=== PATIENT | female | born 1990 | race Caucasian/White ===

== ENCOUNTER 2016-03-29 15:00 | Emergency (ER) | payer OTHER, MEDICAID ==
[~2016-03-29 15:00] MED LIST: /DIVA50TA PO; /HALO5TAB OR; /LAMO10TA OR; /QUET10TA PO; /QUET25TA PO; ABIL15TA OR; ABIL5TAB PO; ALLE25CA OR; ANBE10LI TOP; ATIV1TAB2 PO; BACI500O8 TOP; BENA25CA2 PO; CIPR500T4 PO; CITA10TA2 PO; CLARITIN; DEPA500T2 PO; DIFL150T OR; DOCU100C PO; EFFE150C; EFFE150C OR; EFFE150C PO; FERR325T3 PO; FIOR1CAP PO; FLUP1TAB PO; GEOD40CA PO; IBUP200T45 PO; KLON0.5T; KLON0.5T OR; LAMI25TA OR; LAMI25TA PO; LATU40TA PO; LATU80TA PO; MV-OCAP PO; NASA0.057; NYST10PW TOP; OCEA0.654; PERCOCET PO; PRENATAL VITAMIN PO; PROZ40CA; PROZ40CA PO; RISP2TAB12 PO; SERO200T; SERO200T OR; SERO400T OR; STUATAB PO; THERGRAN; TRAZ150T OR; TUMS500C PO; TYLE325T5 PO; VIT D PO; VITAMIN D50000 UNT; ZOLO100T OR; ZOLO25TA PO; ZOLO50TA PO; ZYPR15TA OR; ZYPR20TA OR; [UNRECOGNIZED DRUG - CODE] PO; monistat TOP
--- NOTE | 2016-03-29 16:32 | REP ---
Chest x-ray: Two views. History: Cough. . Comparison study: Comparison chest x-ray July 24, 2015. . Findings: The lungs are well inflated and free of infiltrate. The pleural angles are sharp. The heart size is normal. Pulmonary vasculature is not increased. No significant bony abnormality is seen. Impression: Negative chest x-ray. Signed by Israel Corrales MD 03/29/2016 04:24 P
--- NOTE | 2016-03-29 16:51 | EDDOCDS ---
Nurse's Notes [facility] Name: Morena Taylor Age: 25 yrs Sex: Female : 1990 Arrival Date: 03/29/2016 Time: 15:00 Bed TR7 Private MD: Marcella Fabian Diagnosis: Cough-chronic Presentation: 03/29 15:21 Presenting complaint: Patient states: "for a little while Esperanza had nasal congestion, hs1 coughing up yellow stuff" ENT told patient that her CT scan was clear but that patient might need a chest CT or Xray. Patient went to [facility] for studies and she was told probably not needed. So patient comes here for evaluation. Adult Sepsis Screening: The patient does not have new or worsening altered mentation. Patient has a respiratory rate of greater than or equal to 22 (1 point). Systolic blood pressure is greater than 100. Patient has a qSOFA score of 0- Negative Sepsis Screen. Suicide/Homicide risk assessment- the patient denies having any suicidal and/or homicidal ideations and does not present with any other emotional, behavioral or mental health complaints. Status: The patient is a dependent. Transition of care: patient was not received from another setting of care. 15:21 Acuity: CRISTIAN Level 4 hs1 15:21 Method Of Arrival: Walkin/Carried/Asstd hs1 Triage Assessment: 15:25 General: Appears in no apparent distress, Behavior is appropriate for age, cooperative. hs1 Pain: Location: chest Pain currently is 3 out of 10 on a pain scale. HIV screening NA for this visit Offered previously. Respiratory: Onset: The symptoms/episode began/occurred at an unknown time. 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 hemorridal suppositories - PMHx: Bipolar disorder; GERD; Rach's Disease; head Trauma; Irritable bowel syndrome; mammary dysplasia; OCD; Ovarian cyst; PTSD; Scoliosis; Seasonal Allergies; Spinal Cyst; tremors; cervical adenopathy; - PSHx: dental surgeries; Tubal ligation; ; - Social history: Smoking status: Patient states former smoker of tobacco. No barriers to communication noted, The patient speaks fluent [place], Speaks appropriately for age. - Family history: Not pertinent. - : The pt / caregiver states he / she is not on anticoagulants. Home medication list is obtained from the patient. - Exposure Risk Screening:: None identified. Screenin:47 Screening information is obtained from the patient. Fall risk: No risks identified. js13 Assistance ADL's: requires no assistance with activities of daily living. Abuse/DV Screen: The patient / caregiver reports he/she is: not in a situation that causes fear, pain or injury. Nutritional screening: No deficits noted. Advance Directives: Currently, there is no health care proxy. home support is adequate. Assessment: 16:47 General: Appears in no apparent distress, comfortable, Behavior is appropriate for age, js13 cooperative. Pain: Denies pain. Neurological: Level of Consciousness is awake, alert. Cardiovascular: Chest pain is denied. Respiratory: Airway is patent Respiratory effort is even, unlabored, Respiratory pattern is regular, Breath sounds are clear. Derm: Skin is pink, warm & dry. Vital Signs: 15:02 BP 131 / 69; Pulse 73; Resp 18 S; Temp 98.1; Pulse Ox 97% on R/A; Weight 66.22 kg (M); dd6 Height 5 ft. 4 in. (162.56 cm) (R); 16:47 js13 15:02 Body Mass Index 25.06 (66.22 kg, 162.56 cm) dd6 16:47 Patient refused discharge VS js13 Vitals: 15:02 Log In Time: March 29, 2016 at 15:00. dd6 ED Course: 15:01 Patient visited by Shaan Martinez PCA. dd6 15:01 Marcella Fabian is Private Physician. dd6 15:01 Patient moved to Waiting dd6 15:03 Patient moved to Pre RCE dd6 15:23 Triage Initiated hs1 16:35 Patient moved to Triage 2 js13 16:35 Chest, 2 View (pa\\E\\lat) Returned. EDMS 16:36 [facility]bar[facility] cc10 16:36 Estella Silverman MD is Attending Physician. cc10 16:36 Patient visited by Earl Ibarra PA-C. cc10 16:36 Patient visited by Earl Ibarra PA-C. cc10 16:44 Marcella Fabian is Referral Physician. cc10 16:47 The patient / caregiver is instructed regarding the plan of care and ED course. js13 16:47 No IV's were initiated during this patient's visit. No procedures done that require js13 assistance. 16:49 Patient moved to [facility] ar3 Order Results: Radiology Order: Chest, 2 View (pa\\E\\lat) Test: Chest, 2 View (pa\\E\\lat) REASON FOR EXAMINATION: Cough; Chest x-ray: Two views.; ; History: Cough. .; ; Comparison study: Comparison chest x-ray July 24, 2015. .; ; Findings: The lungs are well inflated and free of infiltrate. The pleural; angles are sharp. The heart size is normal. Pulmonary vasculature is not; increased. No significant bony abnormality is seen.; ; Impression:; ; Negative chest x-ray.; ; ; Signed by; Israel Corrales MD 03/29/2016 04:24 P; Outcome: 16:44 Discharge ordered by Provider. cc10 16:47 Discharge Assessment: Patient awake, alert and oriented x 3. No cognitive and/or js13 functional deficits noted. Patient verbalized understanding of disposition instructions. patient administered narcotics - no. The following High Risk Discharge criteria are identified: None. Discharged to home ambulatory. Condition: stable. Discharge instructions given to patient, Instructed on discharge instructions, follow up and referral plans. medication usage, Demonstrated understanding of instructions, medications, Pt was receptive of discharge instructions/ teaching. Prescriptions given X 1. No special radiology studies were completed. Property :Personal belongings accompany Pt. 16:49 Patient left the ED. js13 Signatures: Dispatcher [employer] EDMS Shaan Martinez, SLEEPING CAR CONDUCTOR SLEEPING CAR CONDUCTOR dd6 Morena Erazo, SLEEPING CAR CONDUCTOR SLEEPING CAR CONDUCTOR ar3 Daniella Russell RN RN hs1 Devi Pappas RN RN js13 Earl Ibarra PA-C PA-C [facility] MTDD
--- NOTE | 2016-03-29 16:51 | EDDOCDS ---
Physician Documentation [facility] Name: Morena Taylor Age: 25 yrs Sex: Female : 1990 Arrival Date: 03/29/2016 Time: 15:00 Bed TR7 Private MD: Marcella Fabian Disposition: 03/29/16 16:44 Discharged to Home/Self Care. Impression: Cough - chronic. - Condition is Stable. - Discharge Instructions: Cough, Adult. - Prescriptions for Guaifenesin- DM 10-100 mg/5 mL Oral Liquid - take 5 milliliter by ORAL route every 4 hours As needed; 100 milliliter. - Medication Reconciliation, Local Pharmacy Hours form. - Follow up: Emergency Department; When: As needed. Follow up: Marcella Fabian; When: Call to arrange an appointment; Reason: Wound/Symptom Recheck, Further diagnostic work-up, Recheck today's complaints, Continuance of care. - Problem is chronic. - Symptoms are unchanged. Historical: - Allergies: Amoxicillin (Rash); Azithromycin; Bactrim (Rash); Clindamycin (Rash); Colace (Rash, Wheezing); PCN; Tegretol (eyes itch); - Home Meds: 1. hemorridal suppositories - PMHx: Bipolar disorder; GERD; Rach's Disease; head Trauma; Irritable bowel syndrome; mammary dysplasia; OCD; Ovarian cyst; PTSD; Scoliosis; Seasonal Allergies; Spinal Cyst; tremors; cervical adenopathy; - PSHx: dental surgeries; Tubal ligation; ; - Social history: Smoking status: Patient states former smoker of tobacco. No barriers to communication noted, The patient speaks fluent Moh[place], Speaks appropriately for age. - Family history: Not pertinent. - : The pt / caregiver states he / she is not on anticoagulants. Home medication list is obtained from the patient. - Exposure Risk Screening:: None identified. 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 4 in. (162.56 cm) (R); 16:47 js13 15:02 Body Mass Index 25.06 (66.22 kg, 162.56 cm) dd6 16:47 Patient refused discharge VS js13 MDM: 15:44 Chest, 2 View (pa\E\lat) Ordered. EDMS Signatures: Dispatcher [employer] EDMS Daniella Russell RN RN hs1 Devi Pappas RN RN js13 Earl Ibarra, ОЛЬГАC PAHarriettC cc10 MTDD
--- NOTE | 2016-03-31 17:51 | EDDOCDS ---
Physician Documentation [facility] Name: Morena Taylor Age: 25 yrs Sex: Female : 1990 Arrival Date: 03/29/2016 Time: 15:00 Bed TR7 Private MD: Marcella Fabian Disposition: 03/29/16 16:44 Discharged to Home/Self Care. Impression: Cough - chronic. - Condition is Stable. - Discharge Instructions: Cough, Adult. - Prescriptions for Guaifenesin- DM 10-100 mg/5 mL Oral Liquid - take 5 milliliter by ORAL route every 4 hours As needed; 100 milliliter. - Medication Reconciliation, Local Pharmacy Hours form. - Follow up: Emergency Department; When: As needed. Follow up: Marcella Fabian; When: Call to arrange an appointment; Reason: Wound/Symptom Recheck, Further diagnostic work-up, Recheck today's complaints, Continuance of care. - Problem is chronic. - Symptoms are unchanged. Historical: - Allergies: Amoxicillin (Rash); Azithromycin; Bactrim (Rash); Clindamycin (Rash); Colace (Rash, Wheezing); PCN; Tegretol (eyes itch); - Home Meds: 1. hemorridal suppositories - PMHx: Bipolar disorder; GERD; Rach's Disease; head Trauma; Irritable bowel syndrome; mammary dysplasia; OCD; Ovarian cyst; PTSD; Scoliosis; Seasonal Allergies; Spinal Cyst; tremors; cervical adenopathy; - PSHx: dental surgeries; Tubal ligation; ; - Social history: Smoking status: Patient states former smoker of tobacco. No barriers to communication noted, The patient speaks fluent Amharic, Speaks appropriately for age. - Family history: Not pertinent. - : The pt / caregiver states he / she is not on anticoagulants. Home medication list is obtained from the patient. - Exposure Risk Screening:: None identified. 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 4 in. (162.56 cm) (R); 16:47 13 15:02 Body Mass Index 25.06 (66.22 kg, 162.56 cm) dd6 16:47 Patient refused discharge VS js13 MDM: 15:44 Chest, 2 View (pa\E\lat) Ordered. EDMS 03/30 10:01 T-Sheet-- Draft Copy was scanned into [employer] and attached to record. gb Signatures: Dispatcher [employer] EDAK Leena Moreno, Reg Reg gb Daniella Russell RN RN hs1 Devi Pappas RN RN js13 Earl Ibarra, PA-C PA-C cc10 The chart was reviewed and I authenticate all verbal orders and agree with the evaluation and treatment provided.Attachments: 10:01 T-Sheet-- Draft Copy gb Chart Complete MTDD
--- NOTE | 2016-03-31 17:51 | EDDOCDS ---
Physician Documentation [facility] Name: Morena Taylor Age: 25 yrs Sex: Female : 1990 Arrival Date: 03/29/2016 Time: 15:00 Bed TR7 Private MD: Marcella Fabian Disposition: 03/29/16 16:44 Discharged to Home/Self Care. Impression: Cough - chronic. - Condition is Stable. - Discharge Instructions: Cough, Adult. - Prescriptions for Guaifenesin- DM 10-100 mg/5 mL Oral Liquid - take 5 milliliter by ORAL route every 4 hours As needed; 100 milliliter. - Medication Reconciliation, Local Pharmacy Hours form. - Follow up: Emergency Department; When: As needed. Follow up: Marcella Fabian; When: Call to arrange an appointment; Reason: Wound/Symptom Recheck, Further diagnostic work-up, Recheck today's complaints, Continuance of care. - Problem is chronic. - Symptoms are unchanged. Historical: - Allergies: Amoxicillin (Rash); Azithromycin; Bactrim (Rash); Clindamycin (Rash); Colace (Rash, Wheezing); PCN; Tegretol (eyes itch); - Home Meds: 1. hemorridal suppositories - PMHx: Bipolar disorder; GERD; Rach's Disease; head Trauma; Irritable bowel syndrome; mammary dysplasia; OCD; Ovarian cyst; PTSD; Scoliosis; Seasonal Allergies; Spinal Cyst; tremors; cervical adenopathy; - PSHx: dental surgeries; Tubal ligation; ; - Social history: Smoking status: Patient states former smoker of tobacco. No barriers to communication noted, The patient speaks fluent [place], Speaks appropriately for age. - Family history: Not pertinent. - : The pt / caregiver states he / she is not on anticoagulants. Home medication list is obtained from the patient. - Exposure Risk Screening:: None identified. 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 4 in. (162.56 cm) (R); 16:47 13 15:02 Body Mass Index 25.06 (66.22 kg, 162.56 cm) dd6 16:47 Patient refused discharge VS js13 MDM: 15:44 Chest, 2 View (pa\E\lat) Ordered. EDMS 03/30 10:01 T-Sheet-- Draft Copy was scanned into [employer] and attached to record. gb Signatures: Dispatcher [employer] EDIA Leena Moreno, Reg Reg gb Daniella Russell RN RN hs1 Devi Pappas RN RN js13 Earl Ibarra, PA-C PA-C cc10 The chart was reviewed and I authenticate all verbal orders and agree with the evaluation and treatment provided.Attachments: 10:01 T-Sheet-- Draft Copy gb Chart Complete MTDD
--- NOTE | 2016-03-31 17:51 | EDDOCDS ---
Nurse's Notes [facility] Name: Morena Taylor Age: 25 yrs Sex: Female : 1990 Arrival Date: 03/29/2016 Time: 15:00 Bed TR7 Private MD: Marcella Fabian Diagnosis: Cough-chronic Presentation: 03/29 15:21 Presenting complaint: Patient states: "for a little while Esperanza had nasal congestion, hs1 coughing up yellow stuff" ENT told patient that her CT scan was clear but that patient might need a chest CT or Xray. Patient went to [facility] for studies and she was told probably not needed. So patient comes here for evaluation. Adult Sepsis Screening: The patient does not have new or worsening altered mentation. Patient has a respiratory rate of greater than or equal to 22 (1 point). Systolic blood pressure is greater than 100. Patient has a qSOFA score of 0- Negative Sepsis Screen. Suicide/Homicide risk assessment- the patient denies having any suicidal and/or homicidal ideations and does not present with any other emotional, behavioral or mental health complaints. Status: The patient is a dependent. Transition of care: patient was not received from another setting of care. 15:21 Acuity: CRISTIAN Level 4 hs1 15:21 Method Of Arrival: Walkin/Carried/Asstd hs1 Triage Assessment: 15:25 General: Appears in no apparent distress, Behavior is appropriate for age, cooperative. hs1 Pain: Location: chest Pain currently is 3 out of 10 on a pain scale. HIV screening NA for this visit Offered previously. Respiratory: Onset: The symptoms/episode began/occurred at an unknown time. 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 hemorridal suppositories - PMHx: Bipolar disorder; GERD; Rach's Disease; head Trauma; Irritable bowel syndrome; mammary dysplasia; OCD; Ovarian cyst; PTSD; Scoliosis; Seasonal Allergies; Spinal Cyst; tremors; cervical adenopathy; - PSHx: dental surgeries; Tubal ligation; ; - Social history: Smoking status: Patient states former smoker of tobacco. No barriers to communication noted, The patient speaks fluent Nauruan, Speaks appropriately for age. - Family history: Not pertinent. - : The pt / caregiver states he / she is not on anticoagulants. Home medication list is obtained from the patient. - Exposure Risk Screening:: None identified. Screenin:47 Screening information is obtained from the patient. Fall risk: No risks identified. js13 Assistance ADL's: requires no assistance with activities of daily living. Abuse/DV Screen: The patient / caregiver reports he/she is: not in a situation that causes fear, pain or injury. Nutritional screening: No deficits noted. Advance Directives: Currently, there is no health care proxy. home support is adequate. Assessment: 16:47 General: Appears in no apparent distress, comfortable, Behavior is appropriate for age, js13 cooperative. Pain: Denies pain. Neurological: Level of Consciousness is awake, alert. Cardiovascular: Chest pain is denied. Respiratory: Airway is patent Respiratory effort is even, unlabored, Respiratory pattern is regular, Breath sounds are clear. Derm: Skin is pink, warm & dry. Vital Signs: 15:02 BP 131 / 69; Pulse 73; Resp 18 S; Temp 98.1; Pulse Ox 97% on R/A; Weight 66.22 kg (M); dd6 Height 5 ft. 4 in. (162.56 cm) (R); 16:47 js13 15:02 Body Mass Index 25.06 (66.22 kg, 162.56 cm) dd6 16:47 Patient refused discharge VS js13 Vitals: 15:02 Log In Time: March 29, 2016 at 15:00. dd6 ED Course: 15:01 Patient visited by Shaan Martinez PCA. dd6 15:01 Marcella Fabian is Private Physician. dd6 15:01 Patient moved to Waiting dd6 15:03 Patient moved to Pre RCE dd6 15:23 Triage Initiated hs1 16:35 Patient moved to Triage 2 js13 16:35 Chest, 2 View (pa\\E\\lat) Returned. EDMS 16:36 Earl Ibarra PA-C [facility] cc10 16:36 Estella Silverman MD is Attending Physician. cc10 16:36 Patient visited by Earl Ibarra PA-C. cc10 16:36 Patient visited by Earl Ibarra PA-C. cc10 16:44 Marcella Fabian is Referral Physician. cc10 16:47 The patient / caregiver is instructed regarding the plan of care and ED course. js13 16:47 No IV's were initiated during this patient's visit. No procedures done that require js13 assistance. 16:49 Patient moved to [place] [id number] 03/30 10:01 T-Sheet-- Draft Copy was scanned into [employer] and attached to record. gb Order Results: Radiology Order: Chest, 2 View (pa\\E\\lat) Test: Chest, 2 View (pa\\E\\lat) REASON FOR EXAMINATION: Cough; Chest x-ray: Two views.; ; History: Cough. .; ; Comparison study: Comparison chest x-ray July 24, 2015. .; ; Findings: The lungs are well inflated and free of infiltrate. The pleural; angles are sharp. The heart size is normal. Pulmonary vasculature is not; increased. No significant bony abnormality is seen.; ; Impression:; ; Negative chest x-ray.; ; ; Signed by; Israel Corrales MD 03/29/2016 04:24 P; Outcome: 03/29 16:44 Discharge ordered by Provider. cc10 16:47 Discharge Assessment: Patient awake, alert and oriented x 3. No cognitive and/or js13 functional deficits noted. Patient verbalized understanding of disposition instructions. patient administered narcotics - no. The following High Risk Discharge criteria are identified: None. Discharged to home ambulatory. Condition: stable. Discharge instructions given to patient, Instructed on discharge instructions, follow up and referral plans. medication usage, Demonstrated understanding of instructions, medications, Pt was receptive of discharge instructions/ teaching. Prescriptions given X 1. No special radiology studies were completed. Property :Personal belongings accompany Pt. 16:49 Patient left the ED. js13 Signatures: Dispatcher [employer] EDMS Leena Moreno, Reg Reg gb Shaan Martinez, BILINGUAL OPERATOR BILINGUAL OPERATOR dd6 Morena Erazo, BILINGUAL OPERATOR BILINGUAL OPERATOR ar3 Daniella Russell, HUMAIRA RN hs1 Devi Pappas RN RN js13 Earl Ibarra PA-C PA-C cc10 Chart Complete MTDD
== END 2016-03-29 16:49 | disposition home or self-care (01) ==
LOC: M ED 15:00
DX: R05 Cough (principal); K21.9 Gastro-esophageal reflux disease without esophagitis; F31.9 Bipolar disorder, unspecified; K58.9 Irritable bowel syndrome, unspecified; F42.9 Obsessive-compulsive disorder, unspecified; J30.9 Allergic rhinitis, unspecified; M41.9 Scoliosis, unspecified; R25.1 Tremor, unspecified; N60.99 Unspecified benign mammary dysplasia of unspecified breast; M71.38 Other bursal cyst, other site; Z87.820 Personal history of traumatic brain injury; Z87.891 Personal history of nicotine dependence; Z88.0 Allergy status to penicillin; Z88.1 Allergy status to other antibiotic agents; Z88.8 Allergy status to other drugs, medicaments and biological substances

== ENCOUNTER → 2016-04-02 | Outpatient (CLI) | payer OTHER, MEDICAID ==
--- NOTE | 2016-04-02 15:25 | REP ---
THYROID SONOGRAPHY: HISTORY: Elevated TSH level. Comparison thyroid sonography is from September 24, 2013. FINDINGS: Thyroid isthmus is 0.3 cm in thickness and appears normal. Homogeneous thyroid lobes are seen bilaterally. Right lobe dimensions are 4.3 x 2.1 x 1.5 cm. Left lobe dimensions are 4.2 x 1.5 x 1.2 cm. No thyroid nodule or mass lesion is seen. No evidence of extrathyroidal mass or adenopathy. IMPRESSION: Negative thyroid sonography. Signed by Israel Corrales MD 04/02/2016 03:51 P
== END ==
LOC: M RAD 14:28
PROVIDERS: ATTEND Nurse Practitioner Family
DX: R94.6 Abnormal results of thyroid function studies (principal)

== ENCOUNTER → 2016-04-09 | Outpatient (CLI) | payer OTHER, MEDICAID ==
[2016-04-09 16:24] LABS: ANION GAP 6 MEQ/L (8-16); BLOOD UREA NITROGEN 9 MG/DL (7-18); CALCIUM LEVEL 8.9 MG/DL (8.5-10.1); CARBON DIOXIDE LEVEL 30 MEQ/L (21-32); CHLORIDE LEVEL 104 MEQ/L (98-107); CREATININE FOR GFR 0.69 MG/DL (0.55-1.02); FREE T4 0.99 NG/DL (0.76-1.46); GLOMERULAR FILTRATION RATE > 60.0 (>60); GLUCOSE, FASTING 91 MG/DL (70-105); POTASSIUM SERUM 3.6 MEQ/L (3.5-5.1); SODIUM LEVEL 140 MEQ/L (136-145)
== END ==
LOC: M LAB 14:55
PROVIDERS: ATTEND Nurse Practitioner Family
DX: R56.9 Unspecified convulsions (principal); R51 Headache

== ENCOUNTER → 2016-04-09 | Outpatient (CLI) | payer OTHER, MEDICAID ==
[2016-04-09 15:46] LABS: BASO % 0.6 % (0.0-1.0); EOS # 0.2 K/mm3 (0.0-0.50); EOS % 4.4 % (0.0-3.0); LARGE UNSTAINED CELL # 0.1 K/mm3 (0.0-0.4); LARGE UNSTAINED CELL % 2.2 % (0.0-4.0); LYMPH # 1.8 K/mm3 (1.5-6.5); LYMPH % 40.2 % (24.0-44.0); MEAN CORPUSCULAR HEMOGLOBIN 29.6 pg (27.0-33.0); MEAN CORPUSCULAR VOLUME 89.8 fl (80.0-96.0); MONO # 0.2 K/mm3 (0.0-0.8); MONO % 3.5 % (0.0-5.0); NEUTROPHILS # 2.2 K/mm3 (1.8-7.7); NEUTROPHILS % 49.2 % (36.0-66.0); PLATELET COUNT, AUTOMATED 208 k/mm3 (150-450); RED CELL DISTRIBUTION WIDTH 12.3 % (11.5-14.5); WHITE BLOOD COUNT 4.4 K/mm3 (4.0-10.0)
[2016-04-09 16:16] LABS: ERYTHROCYTE SEDIMENTATION RATE 5 mm/hr (0-20)
[2016-04-09 16:25] LABS: ALBUMIN 3.9 GM/DL (3.2-5.2); ALBUMIN/GLOBULIN RATIO 1.34 (1.00-1.93); ALKALINE PHOSPHATASE 47 U/L (45-117); ALT/SGPT 18 U/L (12-78); ANION GAP 8 MEQ/L (8-16); AST/SGOT 12 U/L (15-37); BILIRUBIN,TOTAL 0.3 MG/DL (0.2-1.0); BLOOD UREA NITROGEN 9 MG/DL (7-18); CALCIUM LEVEL 8.6 MG/DL (8.5-10.1); CARBON DIOXIDE LEVEL 29 MEQ/L (21-32); CHLORIDE LEVEL 104 MEQ/L (98-107); CREATININE FOR GFR 0.65 MG/DL (0.55-1.02); GLOMERULAR FILTRATION RATE > 60.0 (>60); GLUCOSE, FASTING 92 MG/DL (70-105); POTASSIUM SERUM 3.7 MEQ/L (3.5-5.1); SODIUM LEVEL 141 MEQ/L (136-145); TOTAL PROTEIN 6.8 GM/DL (6.4-8.2)
== END | disposition home or self-care (01) ==
LOC: M LAB 14:59
PROVIDERS: ATTEND Psychiatry & Neurology Neurology
DX: R51 Headache (principal); R56.9 Unspecified convulsions

== ENCOUNTER → 2016-06-02 | Outpatient (CLI) | payer OTHER, MEDICAID ==
[2016-06-04 11:02] LABS: HIV SCREEN CENTAUR NEGATIVE (NEGATIVE)
== END ==
LOC: M LAB 15:21
PROVIDERS: ATTEND Nurse Practitioner Family
DX: Z11.3 Encounter for screening for infections with a predominantly sexual mode of transmission (principal)

== ENCOUNTER → 2016-06-14 | Outpatient (CLI) | payer OTHER, MEDICAID ==
[2016-06-14 17:25] LABS: ALBUMIN 4.1 GM/DL (3.2-5.2); ALBUMIN/GLOBULIN RATIO 1.32 (1.00-1.93); BILIRUBIN,DIRECT 0.2 MG/DL (0.0-0.2); BILIRUBIN,TOTAL 0.5 MG/DL (0.2-1.0); TOTAL PROTEIN 7.2 GM/DL (6.4-8.2)
== END ==
LOC: M LAB 15:38
DX: Z79.899 Other long term (current) drug therapy (principal)

== ENCOUNTER 2016-06-18 14:51 | Emergency (ER) | payer OTHER, MEDICAID ==
[~2016-06-18] VITALS: Ht 162.6 cm; Wt 70.3 kg
[2016-06-18] MEDS ORDERED: BUSP15TA47 (15:08)
[2016-06-18] MEDS ORDERED: FLEEENE4 PR (16:27)
--- NOTE | 2016-06-18 16:27 | REP ---
KUB: Single view. History: Constipation. Comparison study September 17, 2015. Findings: There is mild gaseous distension of the colon proximal to the distal descending segment. There is a small quantity of stool in the rectum. No radiographic evidence of constipation. There is soft tissue density filling the pelvis however consistent with urine distended bladder or other pelvic structure. Consider pelvic sonography. Impression: Mild gaseous distension of the colon proximal to the descending segment. A small quantity of stool is seen in the rectum. Soft tissue density fills the pelvis, question urinary bladder versus MANAGER AUTOMOTIVE abnormality. Consider sonography. Signed by Israel Corrales MD 06/18/2016 06:01 P
[2016-06-18 16:29] VITALS: BP 122/76
--- NOTE | 2016-06-18 17:16 | REP ---
PELVIC AND ENDOVAGINAL PROBE ULTRASOUND: 06/18/2016: Clinical history: Possible pelvic mass. The patient states no bowel movement for about 1 week. Findings: Both transabdominal and endovaginal probes were utilized. Bladder is only partially filled at 7.5 x 2.8 x 3.6 cm. Uterus is anteverted and measures 9 x 4 x 5 cm. There is a trace amount of fluid in the endometrial cavity. The normal three line thickness is about 13 mm on EV probe. No mas or uterine contour abnormality. Uterus appears fairly homogeneous in the myometrium. There is trace endometrial fluid and endometrial canal. The right ovary is 2.8 x 3.2 x 2.6 cm. The left is 3.1 x 1.95 x 2.30.3 cm. Both ovaries show Doppler tracings with resistive index 0.45 right and 0.49 left. No torsion. There are some small follicles in the left ovary and the right side without mass or adjacent fluid. Many fluid-filled bowel loops are seen adjacent to the uterus. Impression: 1. Uterus anteverted without mass or contour abnormality with endometrial stripe thickness 13 mm with trace endometrial fluid. 2. No pelvic free fluid or adnexal mass. There are small follicles in the ovaries and both ovaries are symmetric and with normal blood flow, no torsion. Signed by Ranulfo Allison MD 06/19/2016 08:57 A
== END 2016-06-18 16:34 | disposition home or self-care (01) ==
LOC: M ED 15:44
DX: R10.2 Pelvic and perineal pain (principal); G89.29 Other chronic pain; K59.00 Constipation, unspecified; F99 Mental disorder, not otherwise specified; Z79.899 Other long term (current) drug therapy; Z88.8 Allergy status to other drugs, medicaments and biological substances; Z88.0 Allergy status to penicillin; Z88.1 Allergy status to other antibiotic agents; Z88.2 Allergy status to sulfonamides; Z91.040 Latex allergy status

== ENCOUNTER → 2016-08-16 | Outpatient (CLI) | payer OTHER, MEDICAID ==
[~2016-08-16] MED LIST changes: +BUSP15TA47; +FLEEENE4 PR
[2016-08-16 16:45] LABS: ALBUMIN 3.5 GM/DL (3.2-5.2); ALBUMIN/GLOBULIN RATIO 1.13 (1.00-1.93); ALKALINE PHOSPHATASE 54 U/L (45-117); ALT/SGPT 17 U/L (12-78); ANION GAP 5 MEQ/L (8-16); AST/SGOT 9 U/L (15-37); BILIRUBIN,TOTAL 0.3 MG/DL (0.2-1.0); BLOOD UREA NITROGEN 7 MG/DL (7-18); CALCIUM LEVEL 8.8 MG/DL (8.5-10.1); CARBON DIOXIDE LEVEL 32 MEQ/L (21-32); CHLORIDE LEVEL 104 MEQ/L (98-107); CREATININE FOR GFR 0.63 MG/DL (0.55-1.02); GLOMERULAR FILTRATION RATE > 60.0 (>60); GLUCOSE, FASTING 74 MG/DL (70-105); POTASSIUM SERUM 4.3 MEQ/L (3.5-5.1); SODIUM LEVEL 141 MEQ/L (136-145); TOTAL PROTEIN 6.6 GM/DL (6.4-8.2)
== END ==
LOC: M LAB 14:57
PROVIDERS: ATTEND Nurse Practitioner Family
DX: K59.00 Constipation, unspecified (principal)

== ENCOUNTER → 2016-09-24 | Outpatient (CLI) | payer OTHER, MEDICAID ==
[~2016-09-24] MED LIST changes: -DOCU100C PO; +DOCU100C16 PO; +NASA0.0517; -NASA0.057
[2016-09-24 15:25] LABS: MEAN CORPUSCULAR HGB CONC 35.3 g/dl (32.0-36.5); MEAN CORPUSCULAR VOLUME 90.7 fl (80.0-96.0); RED CELL DISTRIBUTION WIDTH 12.5 % (11.5-14.5); WHITE BLOOD COUNT 6.4 K/mm3 (4.0-10.0)
== END ==
LOC: M LAB 14:46
PROVIDERS: ATTEND Nurse Practitioner Family
DX: N92.0 Excessive and frequent menstruation with regular cycle (principal)

== ENCOUNTER → 2016-11-02 | Outpatient (CLI) | payer OTHER, MEDICAID ==
[~2016-11-02] MED LIST changes: +GASTROGRAFIN SOLUTION 30ML (Q9963) As Ordered ONE; +ISOVUE-370 76% 100ML VIAL (Q9967) As Ordered ONE
--- NOTE | 2016-11-03 07:20 | REP ---
Clinical: Generalized abdominal pain. Mass. Technique: Axial contrast enhanced images from the lung bases to the pubic symphysis using oral and 100 ml Isovue 370 intravenous contrast material with precontrast images of the abdomen as well as coronal and sagittal re-formations. Comparison: 12/28/2014. Findings: The lung bases are clear. Visualized heart and pericardium are normal. The liver, spleen, pancreas, gallbladder, bilateral adrenal glands and kidneys are normal. The enteric system is without obstruction or acute inflammatory process. Normal terminal ileum and appendix are identified in the right lower quadrant. Pelvis demonstrates normal bladder and age-appropriate uterus/adnexa; common appearance to the left ovary likely physiologic and related to menstrual cycle. No ascites or significant pelvic fluid. No obvious adenopathy. No free air. Abdominal aorta and vasculature appears normal. Surrounding musculoskeletal structures are intact. Impression: Normal contrast enhanced CT of the abdomen and pelvis. No acute abdominopelvic pathology appreciated. Signed by Danyel Kent MD 11/03/2016 07:12 A
== END ==
LOC: M RAD 12:42
PROVIDERS: ATTEND Internal Medicine
DX: R10.84 Generalized abdominal pain (principal)
CPT/HCPCS: 74178; Q9963; Q9967

== ENCOUNTER 2017-05-24 14:50 | Emergency (ER) | payer OTHER, MEDICAID ==
[2017-05-24] MEDS: MAGNESIUM CITRATE 300 ML BTL PO (18:47)
== END 2017-05-24 18:49 | disposition home or self-care (01) ==
LOC: M ED 14:50
DX: K59.00 Constipation, unspecified (principal); I10 Essential (primary) hypertension; F25.9 Schizoaffective disorder, unspecified; F42.9 Obsessive-compulsive disorder, unspecified; F31.9 Bipolar disorder, unspecified; Z87.42 Personal history of other diseases of the female genital tract; Z88.8 Allergy status to other drugs, medicaments and biological substances; Z88.0 Allergy status to penicillin; Z88.2 Allergy status to sulfonamides; Z88.6 Allergy status to analgesic agent; Z88.1 Allergy status to other antibiotic agents; Z91.040 Latex allergy status; Z79.899 Other long term (current) drug therapy
CPT/HCPCS: 74021

== ENCOUNTER → 2017-11-25 | Outpatient (REF) | payer OTHER, MEDICAID ==
[2017-11-25 17:24] LABS: APPEARANCE, URINE CLEAR (CLEAR); BACTERIA, URINE AUTO NEGATIVE (NEGATIVE); BILIRUBIN, URINE AUTO NEGATIVE (NEGATIVE); BLOOD, URINE BLOOD NEGATIVE (NEGATIVE); COLOR, URINE STRAW (YELLOW); GLUCOSE, URINE (UA) AUTO NEGATIVE (NEGATIVE); KETONE, URINE AUTO NEGATIVE (NEGATIVE); LEUKOCYTE ESTERASE, URINE AUTO NEGATIVE (NEGATIVE); NITRITE, URINE AUTO NEGATIVE (NEGATIVE); PROTEIN, URINE AUTO NEGATIVE (NEGATIVE); RBC, URINE AUTO 0 /HPF (0-3); SPECIFIC GRAVITY URINE AUTO 1.003 (1.002-1.035); SQUAMOUS EPITHELIAL CELL UR AU 0 /HPF (0-6); UROBILINOGEN, URINE AUTO 0.2 mg/dL (0.0-2.0); WBC, URINE AUTO 0 /HPF (0-3)
[2017-11-25 20:27] LABS: CHLAMYDIA DNA AMPLIFICATION NEGATIVE (NEGATIVE); GC DNA AMPLIFICATION NEGATIVE (NEGATIVE)
[2017-11-28 12:43] LABS: HEPATITIS B SURFACE ANTIGEN NEGATIVE (NEGATIVE); HIV 1&2 SCREEN CENTAUR NEGATIVE (NEGATIVE)
[2017-11-28 12:43] LABS: HEPATITIS C VIRUS ABY INDEX 0.2 INDEX (<0.8)
== END ==
LOC: M LAB REF 17:12
DX: Z11.3 Encounter for screening for infections with a predominantly sexual mode of transmission (principal)

== ENCOUNTER → 2018-06-09 | Outpatient (REF) | payer MEDICAID, OTHER ==
[~2018-06-09] MED LIST changes: -/DIVA50TA PO; -/HALO5TAB OR; -/LAMO10TA OR; -/QUET10TA PO; -/QUET25TA PO; +AZEL1SPR3; +COLA100C5 PO; +DEPA1TAB3 PO; -GASTROGRAFIN SOLUTION 30ML (Q9963) As Ordered ONE; +HALO1TAB21 OR; -ISOVUE-370 76% 100ML VIAL (Q9967) As Ordered ONE; +LAMI1TAB7 OR; +LITH300C PO; +NYST-15 TOP; -NYST10PW TOP; +SERO1TAB PO; +SERO1TAB3 PO
[2018-06-09 19:01] LABS: BASO % 0.7 % (0.0-1.0); EOS # 0.2 10^3/uL (0.0-0.50); EOS % 3.8 % (0.0-3.0); HEMATOCRIT 38.2 % (36.0-47.0); HEMOGLOBIN 12.7 g/dl (12.0-15.5); MEAN CORPUSCULAR HEMOGLOBIN 29.4 pg (27.0-33.0); MEAN CORPUSCULAR HGB CONC 33.2 g/dl (32.0-36.5); MEAN CORPUSCULAR VOLUME 88.4 fl (80.0-96.0); MONO # 0.3 10^3/uL (0.0-0.8); MONO % 5.2 % (0.0-5.0); NEUTROPHILS # 3.3 10^3/uL (1.8-7.7); PLATELET COUNT, AUTOMATED 266 10^3/uL (150-450); RED BLOOD COUNT 4.32 10^6/uL (4.00-5.40); WHITE BLOOD COUNT 5.8 10^3/uL (4.0-10.0)
[2018-06-09 19:15] LABS: ALBUMIN 4.2 GM/DL (3.2-5.2); ALT/SGPT 18 U/L (12-78); BILIRUBIN,TOTAL 0.5 MG/DL (0.2-1.0); BLOOD UREA NITROGEN 8 MG/DL (7-18); C REACTIVE PROTEIN QUANTITATIV < 0.30 MG/DL (0.00-0.30); CALCIUM LEVEL 9.2 MG/DL (8.5-10.1); CARBON DIOXIDE LEVEL 29 MEQ/L (21-32); CHLORIDE LEVEL 107 MEQ/L (98-107); CREATININE FOR GFR 0.74 MG/DL (0.55-1.30); GLOMERULAR FILTRATION RATE > 60.0 (>60); GLUCOSE, FASTING 79 MG/DL (70-100); POTASSIUM SERUM 4.1 MEQ/L (3.5-5.1); RHEUMATOID FACTOR QUANT < 10.0 IU/ML (<15.0); SODIUM LEVEL 142 MEQ/L (136-145); TOTAL PROTEIN 7.1 GM/DL (6.4-8.2)
[2018-06-09 19:36] LABS: ERYTHROCYTE SEDIMENTATION RATE 5 mm/hr (0-20)
[2018-06-12 14:52] LABS: ANTINUCLEAR ANTIBODIES DIRECT Negative (Negative)
== END ==
LOC: M LAB REF 17:33
PROVIDERS: ATTEND Family Medicine Addiction Medicine
DX: R53.83 Other fatigue (principal); M25.639 Stiffness of unspecified wrist, not elsewhere classified; R52 Pain, unspecified

== ENCOUNTER 2018-10-19 15:21 | Emergency (ER) | payer MEDICAID, OTHER ==
[~2018-10-19] VITALS: Ht 162.6 cm; Wt 74.5 kg
[2018-10-19] MEDS ORDERED: LEXA1TAB (15:28)
[2018-10-19] MEDS ORDERED: INVE1.5T (15:28)
--- NOTE | 2018-10-19 16:35 | REP ---
REASON: Nausea and clinical constipation. Supine and upright views of the abdomen were obtained and show no abnormalities. The intestinal gas pattern is nonspecific. This dual pattern appears appropriate. The organ silhouettes as far as delineated are within normal limits. There is no abnormalities seen involving the imaged osseous structures. IMPRESSION: Unremarkable exam. Electronically Signed by Jan Peters DO 10/19/2018 05:59 P
[2018-10-19] MEDS ORDERED: DICYCLOMINE 10 MG CAP PO ONE (17:15)
[2018-10-19] MEDS ORDERED: ONDANSETRON 4MG/2ML VIAL (J2405) IV ONE (17:15)
[2018-10-19] MEDS ORDERED: NS 1,000 ML IV ONE (17:15)
[2018-10-19 17:34] LABS: BASO # 0.1 10^3/uL (0.0-0.2); BASO % 0.6 % (0.0-1.0); EOS # 0.3 10^3/uL (0.0-0.50); EOS % 3.7 % (0.0-3.0); HEMATOCRIT 37.8 % (36.0-47.0); HEMOGLOBIN 12.6 g/dl (12.0-15.5); LYMPH # 2.3 10^3/uL (1.5-6.5); LYMPH % 29.4 % (24.0-44.0); MEAN CORPUSCULAR HEMOGLOBIN 28.7 pg (27.0-33.0); MEAN CORPUSCULAR HGB CONC 33.3 g/dl (32.0-36.5); MEAN CORPUSCULAR VOLUME 86.1 fl (80.0-96.0); MONO # 0.5 10^3/uL (0.0-0.8); MONO % 6.4 % (0.0-5.0); NEUTROPHILS # 4.7 10^3/uL (1.8-7.7); NEUTROPHILS % 59.8 % (36.0-66.0); PLATELET COUNT, AUTOMATED 240 10^3/uL (150-450); RED BLOOD COUNT 4.39 10^6/uL (4.00-5.40); WHITE BLOOD COUNT 7.9 10^3/uL (4.0-10.0)
[2018-10-19 18:00] LABS: ALBUMIN 3.9 GM/DL (3.2-5.2); ALT/SGPT 19 U/L (12-78); BILIRUBIN,TOTAL 0.3 MG/DL (0.2-1.0); BLOOD UREA NITROGEN 8 MG/DL (7-18); CARBON DIOXIDE LEVEL 30 MEQ/L (21-32); CHLORIDE LEVEL 106 MEQ/L (98-107); CREATININE FOR GFR 0.77 MG/DL (0.55-1.30); GLOMERULAR FILTRATION RATE > 60.0 (>60); GLUCOSE, FASTING 77 MG/DL (70-100); LIPASE 89 U/L (73-393); POTASSIUM SERUM 3.8 MEQ/L (3.5-5.1); SODIUM LEVEL 141 MEQ/L (136-145)
[2018-10-19] MEDS ORDERED: ZOFR4TAB16 PO (18:42)
[2018-10-19 18:54] VITALS: BP 113/65
== END 2018-10-19 19:02 | disposition home or self-care (01) ==
LOC: M ED 15:21
DX: R10.31 Right lower quadrant pain (principal); R10.32 Left lower quadrant pain; R10.84 Generalized abdominal pain; I10 Essential (primary) hypertension; E28.2 Polycystic ovarian syndrome; K21.9 Gastro-esophageal reflux disease without esophagitis; R56.9 Unspecified convulsions; Z79.899 Other long term (current) drug therapy; Z88.0 Allergy status to penicillin; Z88.2 Allergy status to sulfonamides; Z88.6 Allergy status to analgesic agent; Z88.8 Allergy status to other drugs, medicaments and biological substances; Z91.040 Latex allergy status
CPT/HCPCS: 74019; 80053; 81001; 83690; 85025; 96374; 99284; J2405

== ENCOUNTER → 2018-11-19 | Outpatient (REF) | payer OTHER ==
[~2018-11-19] MED LIST changes: +INVE1.5T; +LEXA1TAB; +ZOFR4TAB16 PO
[2018-11-19 21:37] LABS: APPEARANCE, URINE CLOUDY (CLEAR); BACTERIA, URINE AUTO 1+ (NEGATIVE); BILIRUBIN, URINE AUTO NEGATIVE (NEGATIVE); BLOOD, URINE BLOOD NEGATIVE (NEGATIVE); COLOR, URINE YELLOW (YELLOW); GLUCOSE, URINE (UA) AUTO NEGATIVE (NEGATIVE); KETONE, URINE AUTO NEGATIVE (NEGATIVE); LEUKOCYTE ESTERASE, URINE AUTO 3+ (NEGATIVE); MUCUS, URINE SMALL (NEGATIVE); NITRITE, URINE AUTO NEGATIVE (NEGATIVE); PROTEIN, URINE AUTO NEGATIVE (NEGATIVE); RBC, URINE AUTO 3 /HPF (0-3); SPECIFIC GRAVITY URINE AUTO 1.015 (1.002-1.035); SQUAMOUS EPITHELIAL CELL UR AU 12 /HPF (0-6); UROBILINOGEN, URINE AUTO 0.2 mg/dL (0.0-2.0); WBC, URINE AUTO 43 /HPF (0-3)
[2018-11-19 23:23] LABS: CHLAMYDIA DNA AMPLIFICATION NEGATIVE (NEGATIVE); GC DNA AMPLIFICATION NEGATIVE (NEGATIVE)
== END ==
LOC: M LAB REF 14:47
PROVIDERS: ATTEND Physician Assistant Medical
DX: N39.0 Urinary tract infection, site not specified (principal); Z11.3 Encounter for screening for infections with a predominantly sexual mode of transmission; R10.9 Unspecified abdominal pain

== ENCOUNTER → 2018-11-20 | Outpatient (REF) | payer OTHER, MEDICAID ==
[2018-11-20 22:28] LABS: CHLAMYDIA DNA AMPLIFICATION NEGATIVE (NEGATIVE); GC DNA AMPLIFICATION NEGATIVE (NEGATIVE)
[2018-11-21 10:08] LABS: HIV 1&2 SCREEN CENTAUR NEGATIVE (NEGATIVE)
[2018-11-22 10:15] LABS: HEPATITIS B SURFACE ANTIBODY NEGATIVE (POSITIVE); HEPATITIS B SURFACE ANTIGEN NEGATIVE (NEGATIVE)
== END ==
LOC: M LAB REF 19:34
PROVIDERS: ATTEND Nurse Practitioner Adult Health
DX: Z11.3 Encounter for screening for infections with a predominantly sexual mode of transmission (principal)

== ENCOUNTER → 2019-05-15 | Outpatient (CLI) | payer OTHER ==
[2019-05-15 13:45] LABS: CHOLESTEROL RISK RATIO 2.687 (<5)
== END ==
LOC: M LAB 12:31
PROVIDERS: ATTEND Nurse Practitioner Adult Health
DX: Z13.9 Encounter for screening, unspecified (principal)

== ENCOUNTER → 2019-08-06 | Outpatient (CLI) | payer OTHER ==
--- NOTE | 2019-08-06 07:37 | REPVR ---
PROCEDURE INFORMATION: Exam: CT Maxillofacial Without Contrast, Sinus Exam date and time: 08/06/2019 7:27 AM Age: 29 years old Clinical indication: Condition or disease; Other: Chronic sinusitis TECHNIQUE: Imaging protocol: CT Maxillofacial without contrast. Focus on the sinuses. Radiation optimization: All CT scans at this facility use at least one of these dose optimization techniques: automated exposure control; mA and/or kV adjustment per patient size (includes targeted exams where dose is matched to clinical indication); or iterative reconstruction. COMPARISON: CT Maxilofacial w/out contrast 02/24/2016 1:18 PM FINDINGS: Frontal sinuses: Normal. No air-fluid levels. Ethmoid air cells: Normal. No air-fluid levels. Sphenoid sinuses: Normal. No air-fluid levels. Maxillary sinuses: Normal. No air-fluid levels. Ostiomeatal units are patent. Orbits: Orbits are normal. Globes are unremarkable. Nasal cavity/Septum: There is a minimal leftward deviation of the nasal septum. Soft tissues: Unremarkable. Bones/joints: Unremarkable. IMPRESSION: No evidence of sinusitis Electronically signed by: Devi Lopez On 08/06/2019 07:37:30 AM
== END ==
LOC: M RAD 07:09
PROVIDERS: ATTEND Family Medicine Addiction Medicine
DX: J32.9 Chronic sinusitis, unspecified (principal); J34.2 Deviated nasal septum

== ENCOUNTER → 2019-08-21 | Outpatient (CLI) | payer OTHER | LOC: M LABSMTC 14:16 | PROVIDERS: ATTEND Family Medicine | DX: Z03.818 Encounter for observation for suspected exposure to other biological agents ruled out (principal); Z11.59 Encounter for screening for other viral diseases | CPT/HCPCS: C9803; U0003 ==

== ENCOUNTER → 2019-08-29 | Outpatient (REF) | payer OTHER, MEDICAID ==
[2019-08-29 20:51] LABS: CHLAMYDIA DNA AMPLIFICATION NEGATIVE (NEGATIVE); GC DNA AMPLIFICATION NEGATIVE (NEGATIVE)
== END ==
LOC: M LAB REF 15:15
PROVIDERS: ATTEND Physician Assistant
DX: Z11.3 Encounter for screening for infections with a predominantly sexual mode of transmission (principal); Z12.4 Encounter for screening for malignant neoplasm of cervix; Z01.419 Encounter for gynecological examination (general) (routine) without abnormal findings

== ENCOUNTER → 2019-09-14 | Outpatient (CLI) | payer OTHER, MEDICAID ==
[2019-09-14 10:55] LABS: HIV 1&2 SCREEN CENTAUR NEGATIVE (NEGATIVE)
== END ==
LOC: M WUC 08:35
PROVIDERS: ATTEND Physician Assistant
DX: Z11.3 Encounter for screening for infections with a predominantly sexual mode of transmission (principal); Z11.4 Encounter for screening for human immunodeficiency virus [HIV]

== ENCOUNTER → 2019-12-11 | Outpatient (REF) | payer OTHER, MEDICAID ==
[2019-12-11 13:12] LABS: BASO # 0.1 10^3/uL (0.0-0.2); BASO % 1.1 % (0.0-1.0); EOS # 0.4 10^3/uL (0.0-0.5); EOS % 6.9 % (0.0-3.0); HEMATOCRIT 38.2 % (36.0-47.0); HEMOGLOBIN 12.2 g/dl (12.0-15.5); LYMPH # 2.1 10^3/uL (1.5-5.0); LYMPH % 38.5 % (24.0-44.0); MEAN CORPUSCULAR HEMOGLOBIN 28.6 pg (27.0-33.0); MEAN CORPUSCULAR HGB CONC 31.9 g/dl (32.0-36.5); MEAN CORPUSCULAR VOLUME 89.7 fl (80.0-96.0); MONO # 0.3 10^3/uL (0.0-0.8); MONO % 6.4 % (0.0-5.0); NEUTROPHILS # 2.5 10^3/uL (1.5-8.5); NEUTROPHILS % 46.9 % (36.0-66.0); PLATELET COUNT, AUTOMATED 275 10^3/uL (150-450); RED BLOOD COUNT 4.26 10^6/uL (4.00-5.40); WHITE BLOOD COUNT 5.3 10^3/uL (4.0-10.0)
[2019-12-11 13:38] LABS: ALBUMIN 3.8 GM/DL (3.2-5.2); ALT/SGPT 19 U/L (12-78); BILIRUBIN,TOTAL 0.3 MG/DL (0.2-1.0); BLOOD UREA NITROGEN 8 MG/DL (7-18); CALCIUM LEVEL 8.7 MG/DL (8.5-10.1); CARBON DIOXIDE LEVEL 29 MEQ/L (21-32); CHLORIDE LEVEL 109 MEQ/L (98-107); CHOLESTEROL LEVEL 185 MG/DL (<200); CHOLESTEROL RISK RATIO 2.761 (<5); CREATININE FOR GFR 0.72 MG/DL (0.55-1.30); FREE T4 1.19 NG/DL (0.76-1.46); GLOMERULAR FILTRATION RATE > 60.0 (>60); GLUCOSE, FASTING 88 MG/DL (70-100); HDL CHOLESTEROL 67 MG/DL (>40); LDL CHOLESTEROL 106 MG/DL (<100); NON-HDL-C 118 MG/DL; POTASSIUM SERUM 3.9 MEQ/L (3.5-5.1); SODIUM LEVEL 142 MEQ/L (136-145); TOTAL PROTEIN 6.8 GM/DL (6.4-8.2); TRIGLYCERIDES LEVEL 59 MG/DL (<150)
== END ==
LOC: M LAB REF 11:12
PROVIDERS: ATTEND Family Medicine Addiction Medicine
DX: L03.119 Cellulitis of unspecified part of limb (principal); Z13.9 Encounter for screening, unspecified; R53.83 Other fatigue

== ENCOUNTER 2020-01-29 15:02 | Emergency (ER) | payer MEDICAID, OTHER ==
[~2020-01-29] VITALS: Ht 162.6 cm; Wt 79.6 kg
[2020-01-29 15:08] VITALS: BP 116/69
[2020-01-29] MEDS ORDERED: CEPH500C PO (16:20)
== END 2020-01-29 16:32 | disposition home or self-care (01) ==
LOC: M ED 15:02
DX: L03.031 Cellulitis of right toe (principal); I10 Essential (primary) hypertension; G40.909 Epilepsy, unspecified, not intractable, without status epilepticus; K21.9 Gastro-esophageal reflux disease without esophagitis; F41.9 Anxiety disorder, unspecified; F20.9 Schizophrenia, unspecified; F60.3 Borderline personality disorder; F42.9 Obsessive-compulsive disorder, unspecified; Z88.0 Allergy status to penicillin; Z88.1 Allergy status to other antibiotic agents; Z88.2 Allergy status to sulfonamides; Z88.6 Allergy status to analgesic agent; Z88.8 Allergy status to other drugs, medicaments and biological substances; Z91.040 Latex allergy status; Z87.891 Personal history of nicotine dependence; Z79.899 Other long term (current) drug therapy

== ENCOUNTER 2020-02-21 15:32 | Emergency (ER) | payer OTHER ==
[~2020-02-21] VITALS: Ht 162.6 cm; Wt 78.5 kg
[~2020-02-21 15:32] MED LIST changes: +CEPH500C PO
[2020-02-21 15:34] VITALS: BP_DIAS 61
[2020-02-21] MEDS ORDERED: ONDANSETRON 4MG/2ML VIAL IV ONE (17:30)
[2020-02-21] MEDS ORDERED: NS 1,000 ML IV ONE (17:30)
[2020-02-21 19:13] LABS: BASO # 0.1 10^3/uL (0.0-0.2); BASO % 0.6 % (0.0-1.0); EOS # 0.1 10^3/uL (0.0-0.5); EOS % 1.7 % (0.0-3.0); HEMATOCRIT 39.3 % (36.0-47.0); HEMOGLOBIN 12.6 g/dl (12.0-15.5); LYMPH # 1.9 10^3/uL (1.5-5.0); LYMPH % 23.3 % (24.0-44.0); MEAN CORPUSCULAR HEMOGLOBIN 27.5 pg (27.0-33.0); MEAN CORPUSCULAR HGB CONC 32.1 g/dl (32.0-36.5); MEAN CORPUSCULAR VOLUME 85.6 fl (80.0-96.0); MONO # 0.4 10^3/uL (0.0-0.8); MONO % 5.3 % (0.0-5.0); NEUTROPHILS # 5.7 10^3/uL (1.5-8.5); NEUTROPHILS % 68.9 % (36.0-66.0); PLATELET COUNT, AUTOMATED 240 10^3/uL (150-450); RED BLOOD COUNT 4.59 10^6/uL (4.00-5.40); WHITE BLOOD COUNT 8.3 10^3/uL (4.0-10.0)
[2020-02-21 19:41] LABS: ALT/SGPT 18 U/L (12-78); BILIRUBIN,DIRECT 0.2 MG/DL (0.0-0.2); BILIRUBIN,TOTAL 0.5 MG/DL (0.2-1.0); BLOOD UREA NITROGEN 8 MG/DL (7-18); CALCIUM LEVEL 9.3 MG/DL (8.5-10.1); CARBON DIOXIDE LEVEL 29 MEQ/L (21-32); CHLORIDE LEVEL 108 MEQ/L (98-107); CREATININE FOR GFR 0.71 MG/DL (0.55-1.30); GLOMERULAR FILTRATION RATE > 60.0 (>60); GLUCOSE, FASTING 79 MG/DL (70-100); LIPASE 47 U/L (73-393); POTASSIUM SERUM 3.6 MEQ/L (3.5-5.1); SODIUM LEVEL 141 MEQ/L (136-145); TOTAL PROTEIN 7.4 GM/DL (6.4-8.2)
[2020-02-21] MEDS ORDERED: ISOVUE-370 76% 100ML VIAL As Ordered ONE (19:44)
[2020-02-21] MEDS ORDERED: METOCLOPRAMIDE INJ 10MG/2ML VIAL (J2765 PER 1) IV ONE (20:00)
--- NOTE | 2020-02-21 21:08 | REPVR ---
PROCEDURE INFORMATION: Exam: CT Abdomen And Pelvis With Contrast Exam date and time: 02/21/2020 7:48 PM Age: 29 years old Clinical indication: Abdominal pain; Generalized TECHNIQUE: Imaging protocol: Computed tomography of the abdomen and pelvis with intravenous contrast. Radiation optimization: All CT scans at this facility use at least one of these dose optimization techniques: automated exposure control; mA and/or kV adjustment per patient size (includes targeted exams where dose is matched to clinical indication); or iterative reconstruction. Contrast material: ISOVUE 370; Contrast volume: 100 ml; Contrast route: INTRAVENOUS (IV); COMPARISON: CT ABD PELVIS W/O FOL BY WIT 11/02/2016 2:32 PM FINDINGS: Liver: Normal. No mass. Gallbladder and bile ducts: Normal. No calcified stones. No ductal dilation. Pancreas: Normal. No ductal dilation. Spleen: Normal. No splenomegaly. Adrenal glands: Normal. No mass. Kidneys and ureters: Normal. No hydronephrosis. Stomach and bowel: Mild intraluminal fluid and mucosal enhancement are noted in the small bowel. No wall thickening or other inflammatory changes. No bowel obstruction. The stomach and colon are unremarkable. Appendix: No evidence of appendicitis. Intraperitoneal space: Unremarkable. No free air. No significant fluid collection. Vasculature: Unremarkable. No abdominal aortic aneurysm. Lymph nodes: Unremarkable. No enlarged lymph nodes. Urinary bladder: Unremarkable as visualized. Reproductive: Unremarkable as visualized. Bones/joints: Unremarkable. No acute fracture. Soft tissues: Unremarkable. IMPRESSION: Mild mucosal enhancement and intraluminal fluid in the small bowel is nonspecific but may indicate a viral enteritis. No obstruction. Electronically signed by: Bienvenido Miranda On 02/21/2020 21:08:04 PM
[2020-02-21] MEDS ORDERED: ONDA4TAB6 PO (21:16)
[2020-02-21 21:33] VITALS: BP_SYST 66
== END 2020-02-21 21:37 | disposition home or self-care (01) ==
LOC: M ED 15:32
DX: A08.4 Viral intestinal infection, unspecified (principal); K21.9 Gastro-esophageal reflux disease without esophagitis; Z88.0 Allergy status to penicillin; Z88.1 Allergy status to other antibiotic agents; Z88.2 Allergy status to sulfonamides; Z88.6 Allergy status to analgesic agent; Z88.8 Allergy status to other drugs, medicaments and biological substances; Z91.040 Latex allergy status
CPT/HCPCS: 74177; 80048; 80076; 83605; 83690; 85025; 96361; 96374; 96375; 99284; J2405; J2765; Q9967

== ENCOUNTER → 2020-02-26 | Outpatient (REF) | payer OTHER ==
[~2020-02-26] MED LIST changes: +ONDA4TAB6 PO
[2020-02-27 10:42] LABS: APPEARANCE, URINE HAZY (CLEAR); BACTERIA, URINE AUTO NEGATIVE (NEGATIVE); BILIRUBIN, URINE AUTO NEGATIVE (NEGATIVE); BLOOD, URINE BLOOD NEGATIVE (NEGATIVE); COLOR, URINE YELLOW (YELLOW); GLUCOSE, URINE (UA) AUTO NEGATIVE (NEGATIVE); KETONE, URINE AUTO NEGATIVE (NEGATIVE); LEUKOCYTE ESTERASE, URINE AUTO TRACE (NEGATIVE); MUCUS, URINE SMALL (NEGATIVE); NITRITE, URINE AUTO NEGATIVE (NEGATIVE); PROTEIN, URINE AUTO NEGATIVE (NEGATIVE); RBC, URINE AUTO 1 /HPF (0-3); SPECIFIC GRAVITY URINE AUTO 1.015 (1.002-1.035); SQUAMOUS EPITHELIAL CELL UR AU 4 /HPF (0-6); UROBILINOGEN, URINE AUTO 0.2 mg/dL (0.0-2.0); WBC, URINE AUTO 7 /HPF (0-3)
== END ==
LOC: M LAB REF 09:13
PROVIDERS: ATTEND Family Medicine Addiction Medicine
DX: R30.9 Painful micturition, unspecified (principal)

== ENCOUNTER → 2020-04-06 | Outpatient (CLI) | payer OTHER | LOC: M LABSMTC 10:11 | PROVIDERS: ATTEND Internal Medicine | DX: Z20.822 Contact with and (suspected) exposure to COVID-19 (principal) ==

== ENCOUNTER → 2020-06-27 | Outpatient (REF) | payer OTHER ==
[2020-06-27 16:54] LABS: APPEARANCE, URINE CLEAR (CLEAR); BACTERIA, URINE AUTO NEGATIVE (NEGATIVE); BILIRUBIN, URINE AUTO NEGATIVE (NEGATIVE); BLOOD, URINE BLOOD NEGATIVE (NEGATIVE); COLOR, URINE YELLOW (YELLOW); GLUCOSE, URINE (UA) AUTO NEGATIVE (NEGATIVE); KETONE, URINE AUTO NEGATIVE (NEGATIVE); LEUKOCYTE ESTERASE, URINE AUTO NEGATIVE (NEGATIVE); NITRITE, URINE AUTO NEGATIVE (NEGATIVE); PROTEIN, URINE AUTO NEGATIVE (NEGATIVE); RBC, URINE AUTO 1 /HPF (0-3); SPECIFIC GRAVITY URINE AUTO 1.013 (1.002-1.035); SQUAMOUS EPITHELIAL CELL UR AU 0 /HPF (0-6); UROBILINOGEN, URINE AUTO 0.2 mg/dL (0.0-2.0); WBC, URINE AUTO 0 /HPF (0-3)
== END ==
LOC: M LAB REF 16:24
PROVIDERS: ATTEND Family Medicine Addiction Medicine
DX: R30.9 Painful micturition, unspecified (principal)

== ENCOUNTER → 2021-09-02 | Outpatient (CLI) | payer MEDICAID, OTHER ==
[~2021-09-02] MED LIST changes: -LATU40TA PO; +LATU40TA2 PO; -LATU80TA PO; +LATU80TA2 PO
== END ==
LOC: M WHC 13:40
PROVIDERS: ATTEND Specialist
DX: N92.6 Irregular menstruation, unspecified (principal)

== ENCOUNTER → 2022-01-27 | Outpatient (REF) | payer OTHER ==
[2022-01-27 13:22] LABS: BASO % 0.6 % (0.0-1.0); EOS # 0.2 10^3/uL (0.0-0.5); EOS % 3.6 % (0.0-3.0); HEMATOCRIT 39.7 % (36.0-47.0); HEMOGLOBIN 11.8 g/dl (12.0-15.5); LYMPH # 2.1 10^3/uL (1.5-5.0); LYMPH % 31.2 % (24.0-44.0); MEAN CORPUSCULAR HEMOGLOBIN 24.8 pg (27.0-33.0); MEAN CORPUSCULAR HGB CONC 29.7 g/dl (32.0-36.5); MEAN CORPUSCULAR VOLUME 83.6 fl (80.0-96.0); MONO # 0.5 10^3/uL (0.0-0.8); MONO % 7.3 % (2.0-8.0); NEUTROPHILS # 3.9 10^3/uL (1.5-8.5); PLATELET COUNT, AUTOMATED 272 10^3/uL (150-450); RED BLOOD COUNT 4.75 10^6/uL (4.00-5.40); WHITE BLOOD COUNT 6.7 10^3/uL (4.0-10.0)
[2022-01-27 16:02] LABS: ALBUMIN 3.9 G/DL (3.2-5.2); ALT/SGPT 35 U/L (7.0-40); BILIRUBIN,TOTAL 0.4 MG/DL (0.3-1.2); BLOOD UREA NITROGEN 18 MG/DL (9-23); CALCIUM LEVEL 9.1 MG/DL (8.5-10.1); CARBON DIOXIDE LEVEL 25 MMOL/L (20-31); CHLORIDE LEVEL 106 MMOL/L (98-107); CHOLESTEROL LEVEL 199 MG/DL (<200); CHOLESTEROL RISK RATIO 3.05 (<5); CREATININE FOR GFR 0.63 MG/DL (0.55-1.30); GLOMERULAR FILTRATION RATE > 60.0 (>60); GLUCOSE, FASTING 85 MG/DL (60-100); HDL CHOLESTEROL 65.2 MG/DL (>40); LDL CHOLESTEROL 113.6 MG/DL (<100); NON-HDL-C 134 MG/DL; POTASSIUM SERUM 4.3 MMOL/L (3.5-5.1); SODIUM LEVEL 140 MMOL/L (136-145); TOTAL PROTEIN 7.2 G/DL (5.7-8.2); TRIGLYCERIDES LEVEL 101 MG/DL (<150)
== END ==
LOC: M WUC 10:42
PROVIDERS: ATTEND Nurse Practitioner Psychiatric/Mental Health
DX: F25.0 Schizoaffective disorder, bipolar type (principal)

== ENCOUNTER → 2022-06-16 | Outpatient (CLI) | payer OTHER ==
[2022-06-16 17:49] LABS: BASO # 0.1 10^3/uL (0.0-0.2); BASO % 0.7 % (0.0-1.0); EOS # 0.1 10^3/uL (0.0-0.5); EOS % 1.6 % (0.0-3.0); HEMATOCRIT 40.6 % (36.0-47.0); HEMOGLOBIN 12.5 g/dl (12.0-15.5); LYMPH # 2.4 10^3/uL (1.5-5.0); MEAN CORPUSCULAR HEMOGLOBIN 25.2 pg (27.0-33.0); MEAN CORPUSCULAR HGB CONC 30.8 g/dl (32.0-36.5); MEAN CORPUSCULAR VOLUME 81.9 fl (80.0-96.0); MONO # 0.5 10^3/uL (0.0-0.8); MONO % 6.6 % (2.0-8.0); NEUTROPHILS # 4.2 10^3/uL (1.5-8.5); NEUTROPHILS % 57.8 % (36.0-66.0); PLATELET COUNT, AUTOMATED 272 10^3/uL (150-450); RED BLOOD COUNT 4.96 10^6/uL (4.00-5.40); WHITE BLOOD COUNT 7.3 10^3/uL (4.0-10.0)
[2022-06-16 18:06] LABS: HEPATITIS B SURFACE ANTIGEN NEGATIVE (NEGATIVE)
[2022-06-16 18:19] LABS: HIV 1&2 SCREEN ATELLICA NEGATIVE (NEGATIVE)
[2022-06-16 18:25] LABS: HEPATITIS C VIRUS ABY INDEX 0.1 INDEX (<0.8)
[2022-06-16 19:06] LABS: GC DNA AMPLIFICATION NEGATIVE (NEGATIVE)
== END ==
LOC: M PLALAB 15:59
PROVIDERS: ATTEND Family Medicine
DX: Z11.9 Encounter for screening for infectious and parasitic diseases, unspecified (principal)

== ENCOUNTER 2022-07-12 10:47 | Emergency (ER) | payer MEDICAID, OTHER ==
[~2022-07-12] VITALS: Ht 162.6 cm; Wt 105.0 kg
[2022-07-12 12:11] LABS: BASO % 0.5 % (0.0-1.0); EOS # 0.1 10^3/uL (0.0-0.5); EOS % 1.4 % (0.0-3.0); HEMATOCRIT 37.6 % (36.0-47.0); HEMOGLOBIN 11.7 g/dl (12.0-15.5); LYMPH # 2.1 10^3/uL (1.5-5.0); LYMPH % 32.8 % (24.0-44.0); MEAN CORPUSCULAR HEMOGLOBIN 25.5 pg (27.0-33.0); MEAN CORPUSCULAR HGB CONC 31.1 g/dl (32.0-36.5); MEAN CORPUSCULAR VOLUME 82.1 fl (80.0-96.0); MONO # 0.4 10^3/uL (0.0-0.8); MONO % 5.7 % (2.0-8.0); NEUTROPHILS # 3.7 10^3/uL (1.5-8.5); NEUTROPHILS % 59.3 % (36.0-66.0); PLATELET COUNT, AUTOMATED 254 10^3/uL (150-450); RED BLOOD COUNT 4.58 10^6/uL (4.00-5.40); WHITE BLOOD COUNT 6.3 10^3/uL (4.0-10.0)
[2022-07-12 12:32] LABS: LIPASE 24 U/L (12-53)
[2022-07-12 12:35] LABS: ALBUMIN 4.2 G/DL (3.2-5.2); ALKALINE PHOSPHATASE 63 U/L (46-116); ALT/SGPT 14 U/L (7.0-40); AST/SGOT 15 U/L (<34); BILIRUBIN,DIRECT 0.1 MG/DL (<0.4); BILIRUBIN,TOTAL 0.4 MG/DL (0.3-1.2); BLOOD UREA NITROGEN < 5 MG/DL (9-23); CALCIUM LEVEL 9.3 MG/DL (8.5-10.1); CARBON DIOXIDE LEVEL 28 MMOL/L (20-31); CHLORIDE LEVEL 107 MMOL/L (98-107); CREATININE FOR GFR 0.66 MG/DL (0.55-1.30); GLOMERULAR FILTRATION RATE > 60.0 (>60); GLUCOSE, FASTING 94 MG/DL (60-100); SODIUM LEVEL 138 MMOL/L (136-145); TOTAL PROTEIN 7.2 G/DL (5.7-8.2)
[2022-07-12 12:57] LABS: HCG, SERUM QUALITATIVE NEGATIVE (NEGATIVE)
[2022-07-12] MEDS ORDERED: NS 1,000 ML IV ONE (17:45)
[2022-07-12] MEDS ORDERED: ONDANSETRON 4MG 2ML VIAL IV ONE (18:20)
[2022-07-12 18:24] VITALS: BP 123/58
[2022-07-12] MEDS ORDERED: ISOVUE-370 76% 100ML VIAL As Ordered ONE (18:28)
[2022-07-12] MEDS ORDERED: MACR100C43 PO ×2 (21:04→21:24)
[2022-07-12] MEDS ORDERED: NITROFURANTOIN (MACROBID) 100 MG CAP PO ONE (21:05)
[2022-07-12] MEDS ORDERED: MIRA3350 PO (21:05)
[2022-07-13] MEDS ORDERED: CLIN-250 (10:52)
[2022-07-13] MEDS ORDERED: QUET50TA4 (10:52)
[2022-07-13] MEDS ORDERED: POLY17PO18 PO (11:35)
[2022-07-13] MEDS ORDERED: TOPI25TA10 PO (11:35)
[2022-07-13] MEDS ORDERED: HIBI4LIQ TOP (11:35)
[2022-07-13] MEDS ORDERED: MUPI2OI TOP (11:35)
[2022-07-13] MEDS ORDERED: CLEO300C2 PO (11:37)
[2022-07-13] MEDS ORDERED: LEXA1TAB PO (11:37)
[2022-07-13] MEDS ORDERED: QUET50TA4 PO (11:37)
[2022-07-13] MEDS ORDERED: MULT-113 PO (11:38)
[2022-07-13] MEDS ORDERED: COLA100C5 PO (11:38)
== END 2022-07-12 21:47 | disposition home or self-care (01) ==
LOC: M ED 10:47
DX: K59.00 Constipation, unspecified (principal); N39.0 Urinary tract infection, site not specified; I10 Essential (primary) hypertension; R51.9 Headache, unspecified; R56.9 Unspecified convulsions; K21.9 Gastro-esophageal reflux disease without esophagitis; Z88.0 Allergy status to penicillin; Z88.2 Allergy status to sulfonamides; Z88.8 Allergy status to other drugs, medicaments and biological substances; Z88.6 Allergy status to analgesic agent; Z88.1 Allergy status to other antibiotic agents; Z79.899 Other long term (current) drug therapy
CPT/HCPCS: 74177; 80048; 80076; 81001; 83690; 84703; 85025; 87086; 93005; 96374; 99284; J2405; Q9967

== ENCOUNTER 2022-07-13 10:41 | Emergency (ER) | payer OTHER ==
[~2022-07-13] VITALS: Ht 162.6 cm; Wt 106.8 kg
[~2022-07-13 10:41] MED LIST changes: +MACR100C43 PO; +MIRA3350 PO
[2022-07-13] MEDS ORDERED: CLIN-250 (10:52)
[2022-07-13] MEDS ORDERED: QUET50TA4 (10:52)
[2022-07-13] MEDS ORDERED: FLEET ENEMA PR STA (11:29)
[2022-07-13 11:34] LABS: HEMOGLOBIN 11.9 g/dl (12.0-15.5); MEAN CORPUSCULAR HEMOGLOBIN 25.5 pg (27.0-33.0); MEAN CORPUSCULAR HGB CONC 31.3 g/dl (32.0-36.5); MEAN CORPUSCULAR VOLUME 81.4 fl (80.0-96.0); PLATELET COUNT, AUTOMATED 260 10^3/uL (150-450); RED BLOOD COUNT 4.67 10^6/uL (4.00-5.40); WHITE BLOOD COUNT 6.6 10^3/uL (4.0-10.0)
[2022-07-13] MEDS ORDERED: MUPI2OI TOP (11:35)
[2022-07-13] MEDS ORDERED: TOPI25TA10 PO (11:35)
[2022-07-13] MEDS ORDERED: POLY17PO18 PO (11:35)
[2022-07-13] MEDS ORDERED: HIBI4LIQ TOP (11:35)
[2022-07-13] MEDS ORDERED: QUET50TA4 PO (11:37)
[2022-07-13] MEDS ORDERED: CLEO300C2 PO (11:37)
[2022-07-13] MEDS ORDERED: LEXA1TAB PO (11:37)
[2022-07-13] MEDS ORDERED: MULT-113 PO (11:38)
[2022-07-13] MEDS ORDERED: COLA100C5 PO (11:38)
[2022-07-13] MEDS ORDERED: HOME MED LIST COMPLETE! XX SCH (11:40)
[2022-07-13 11:59] LABS: ETHYL ALCOHOL (ETHANOL) < 0.003 % (0.000-0.010)
[2022-07-13 12:01] LABS: SALICYLATE LEVEL < 3.0 MG/DL (<30)
[2022-07-13 12:02] LABS: ACETAMINOPHEN LEVEL < 2.0 UG/ML (10.0-20.0); ALBUMIN 4.3 G/DL (3.2-5.2); ALKALINE PHOSPHATASE 66 U/L (46-116); ALT/SGPT 16 U/L (7.0-40); AST/SGOT 16 U/L (<34); BILIRUBIN,DIRECT 0.2 MG/DL (<0.4); BILIRUBIN,TOTAL 0.6 MG/DL (0.3-1.2); BLOOD UREA NITROGEN 6 MG/DL (9-23); CALCIUM LEVEL 9.2 MG/DL (8.5-10.1); CARBON DIOXIDE LEVEL 26 MMOL/L (20-31); CHLORIDE LEVEL 106 MMOL/L (98-107); CREATININE FOR GFR 0.66 MG/DL (0.55-1.30); GLOMERULAR FILTRATION RATE > 60.0 (>60); GLUCOSE, FASTING 87 MG/DL (60-100); POTASSIUM SERUM 3.7 MMOL/L (3.5-5.1); SODIUM LEVEL 139 MMOL/L (136-145); TOTAL PROTEIN 7.4 G/DL (5.7-8.2)
[2022-07-13 12:04] LABS: THYROID STIMULATING HORMONE 0.692 uIU/ML (0.55-4.78)
[2022-07-13 12:57] LABS: HCG, SERUM QUALITATIVE NEGATIVE (NEGATIVE)
[2022-07-13 13:30] LABS: AMPHETAMINES LEVEL URINE NEGATIVE (NEGATIVE); BARBITURATES URINE NEGATIVE (NEGATIVE); BENZODIAZEPINES URINE NEGATIVE (NEGATIVE); CANNABINOIDS URINE NEGATIVE (NEGATIVE); COCAINE METABOLITE URINE NEGATIVE (NEGATIVE); METHADONE URINE NEGATIVE (NEGATIVE); OPIATES URINE NEGATIVE (NEGATIVE); PHENCYCLIDINE URINE NEGATIVE (NEGATIVE)
[2022-07-13 17:16] VITALS: BP 127/81
[2022-07-13] MEDS ORDERED: CLINDAMYCIN 150MG CAPSULE PO SCH (21:00)
[2022-07-13] MEDS ORDERED: MUPIROCIN 2% OINT 22 GM TUBE TOP SCH (21:00)
[2022-07-13] MEDS ORDERED: ESCITALOPRAM OXALATE 10 MG TAB (LEXAPRO) PO SCH (21:00)
[2022-07-13] MEDS ORDERED: QUEtiapine FUMARATE 50MG TAB PO SCH (21:00)
== END 2022-07-13 17:30 | disposition home or self-care (01) ==
LOC: M ED 10:41
DX: F31.9 Bipolar disorder, unspecified (principal); K59.00 Constipation, unspecified; F20.9 Schizophrenia, unspecified; Z88.0 Allergy status to penicillin; Z88.2 Allergy status to sulfonamides; Z88.6 Allergy status to analgesic agent; Z88.8 Allergy status to other drugs, medicaments and biological substances

== ENCOUNTER → 2022-07-16 | Outpatient (REF) | payer OTHER, MEDICAID ==
[~2022-07-16] MED LIST changes: +CLEO300C2 PO; +CLIN-250; +HIBI4LIQ TOP; +LEXA1TAB PO; +MULT-113 PO; +MUPI2OI TOP; +POLY17PO18 PO; +QUET50TA4; +QUET50TA4 PO; +TOPI25TA10 PO
[2022-07-16 15:07] LABS: APPEARANCE, URINE CLEAR (CLEAR); BACTERIA, URINE AUTO NEGATIVE (NEGATIVE); BILIRUBIN, URINE AUTO NEGATIVE (NEGATIVE); BLOOD, URINE BLOOD NEGATIVE (NEGATIVE); COLOR, URINE STRAW (YELLOW); GLUCOSE, URINE (UA) AUTO NEGATIVE (NEGATIVE); KETONE, URINE AUTO NEGATIVE (NEGATIVE); LEUKOCYTE ESTERASE, URINE AUTO TRACE (NEGATIVE); MUCUS, URINE SMALL (NEGATIVE); NITRITE, URINE AUTO NEGATIVE (NEGATIVE); PROTEIN, URINE AUTO NEGATIVE (NEGATIVE); RBC, URINE AUTO 0 /HPF (0-3); SPECIFIC GRAVITY URINE AUTO 1.008 (1.002-1.035); SQUAMOUS EPITHELIAL CELL UR AU 1 /HPF (0-6); UROBILINOGEN, URINE AUTO 0.2 mg/dL (0.0-2.0); WBC, URINE AUTO 1 /HPF (0-3)
== END ==
LOC: M SFHCPLAZ 13:09
PROVIDERS: ATTEND Family Medicine
DX: R30.0 Dysuria (principal)

== ENCOUNTER 2022-09-01 21:16 | Emergency (ER) | payer MEDICAID, OTHER ==
[~2022-09-01] VITALS: Ht 162.6 cm; Wt 102.1 kg
[2022-09-01 21:16] VITALS: TEMP 97.5
[2022-09-01] MEDS ORDERED: META28.32 PO (21:25)
[2022-09-01] MEDS ORDERED: diphenhydrAMINE 50MG/ML VIAL IV ONE (23:30)
[2022-09-01] MEDS ORDERED: NS 1,000 ML IV ONE (23:30)
[2022-09-01] MEDS ORDERED: methylPREDNISolone 125MG 2ML VIAL IV ONE (23:30)
[2022-09-01] MEDS ORDERED: FAMOTIDINE 20MG/2ML VIAL IVP ONE (23:30)
[2022-09-02] MEDS ORDERED: MEDR4PAK PO (00:12)
[2022-09-02 01:48] VITALS: BP 109/76; O2SAT 97
== END 2022-09-02 01:53 | disposition home or self-care (01) ==
LOC: M ED 21:16
DX: L29.9 Pruritus, unspecified (principal); T78.1XXA Other adverse food reactions, not elsewhere classified, initial encounter; F25.9 Schizoaffective disorder, unspecified; I10 Essential (primary) hypertension; N83.209 Unspecified ovarian cyst, unspecified side; Z88.0 Allergy status to penicillin; Z88.2 Allergy status to sulfonamides; Z88.6 Allergy status to analgesic agent; Z88.8 Allergy status to other drugs, medicaments and biological substances; Z88.1 Allergy status to other antibiotic agents; Z91.040 Latex allergy status; Z79.899 Other long term (current) drug therapy
CPT/HCPCS: 96374; 96375; 99284; J1200; J2930; S0028

== ENCOUNTER → 2022-10-14 | Outpatient (REF) | payer MEDICAID, OTHER ==
[~2022-10-14] MED LIST changes: +MEDR4PAK PO; +META28.32 PO
== END ==
LOC: M SFHCWAGY 15:46
PROVIDERS: ATTEND Specialist
DX: Z01.419 Encounter for gynecological examination (general) (routine) without abnormal findings (principal); Z77.9 Other contact with and (suspected) exposures hazardous to health; Z12.4 Encounter for screening for malignant neoplasm of cervix

== ENCOUNTER 2023-03-29 13:18 | Emergency (ER) | payer MEDICAID, OTHER ==
[~2023-03-29] VITALS: Ht 162.6 cm; Wt 101.0 kg
[2023-03-29] MEDS ORDERED: ACE65ERTAB PO (13:25)
[2023-03-29] MEDS ORDERED: MUPI2OI TOP (14:25)
[2023-03-29] MEDS ORDERED: CEPH500C PO (14:25)
[2023-03-29 14:43] VITALS: BP 99/68; TEMP 98.4; O2SAT 100
== END 2023-03-29 14:45 | disposition home or self-care (01) ==
LOC: M ED 13:18
DX: K13.0 Diseases of lips (principal); I10 Essential (primary) hypertension; F41.9 Anxiety disorder, unspecified; F32.A Depression, unspecified; F31.9 Bipolar disorder, unspecified; G40.89 Other seizures; K21.9 Gastro-esophageal reflux disease without esophagitis; F20.9 Schizophrenia, unspecified; F60.3 Borderline personality disorder; Z88.0 Allergy status to penicillin; Z88.2 Allergy status to sulfonamides; Z88.8 Allergy status to other drugs, medicaments and biological substances; Z91.040 Latex allergy status; Z79.899 Other long term (current) drug therapy; Z79.1 Long term (current) use of non-steroidal anti-inflammatories (NSAID)

== ENCOUNTER 2023-07-11 14:27 | Emergency (ER) | payer MEDICAID, OTHER ==
[~2023-07-11] VITALS: Ht 162.6 cm; Wt 96.6 kg
[~2023-07-11 14:27] MED LIST changes: +ACE65ERTAB PO
[2023-07-11] MEDS ORDERED: NAPR220C14 PO (14:36)
[2023-07-11] MEDS ORDERED: LEXA1TAB2 (14:36)
[2023-07-11] MEDS ORDERED: VENL37.598 (14:36)
[2023-07-11] MEDS ORDERED: LUMA10.5 (14:36)
[2023-07-11] MEDS ORDERED: TOPI25TA10 (14:36)
[2023-07-11 18:52] VITALS: BP 141/87; TEMP 98.3; O2SAT 100
== END 2023-07-11 18:53 | disposition home or self-care (01) ==
LOC: M ED 14:27
DX: L90.5 Scar conditions and fibrosis of skin (principal); Z88.0 Allergy status to penicillin; Z88.2 Allergy status to sulfonamides; Z88.1 Allergy status to other antibiotic agents; Z88.8 Allergy status to other drugs, medicaments and biological substances; Z79.1 Long term (current) use of non-steroidal anti-inflammatories (NSAID); Z79.2 Long term (current) use of antibiotics; Z79.899 Other long term (current) drug therapy

== ENCOUNTER 2023-08-02 09:38 | Outpatient (RCR) | payer OTHER ==
[~2023-08-02 09:38] MED LIST changes: +LEXA1TAB2; +LUMA10.5; +NAPR220C14 PO; +TOPI25TA10; +VENL37.598
== END 2023-08-05 ==
LOC: M PT 09:38
PROVIDERS: ATTEND Family Medicine
DX: M76.812 Anterior tibial syndrome, left leg (principal)

== ENCOUNTER 2023-08-09 09:10 | Outpatient (RCR) | payer OTHER ==
[~2023-08-09 09:10] MED LIST changes: +ONDA-282 PO; -ONDA4TAB6 PO
== END 2023-09-04 ==
LOC: M PT 09:10
PROVIDERS: ATTEND Family Medicine
DX: M76.812 Anterior tibial syndrome, left leg (principal)

== ENCOUNTER → 2023-09-06 | Outpatient (REF) | payer MEDICAID, OTHER ==
[2023-09-07 10:17] LABS: Candida species NOT DETECTED (NOT DETECTED); Gardnerella vaginalis NOT DETECTED (NOT DETECTED); Trichamonas vaginalis NOT DETECTED (NOT DETECTED)
== END ==
LOC: M SFHCPLAZ 12:43
PROVIDERS: ATTEND Physician Assistant Medical
DX: R30.0 Dysuria (principal)

== ENCOUNTER → 2023-09-27 | Outpatient (REF) | payer MEDICAID, OTHER | LOC: M SFHCPLAZ 14:53 | PROVIDERS: ATTEND Physician Assistant Medical | DX: R30.0 Dysuria (principal) ==

== ENCOUNTER → 2023-10-13 | Outpatient (CLI) | payer OTHER ==
[2023-10-13 18:26] LABS: Trichomonas vaginalis (AMP) NOT DETECTED (NEGATIVE)
[2023-10-13 18:48] LABS: GC DNA AMPLIFICATION NEGATIVE (NEGATIVE)
[2023-10-13 18:56] LABS: HEPATITIS B SURFACE ANTIGEN NEGATIVE (NEGATIVE)
[2023-10-13 19:09] LABS: HIV 1&2 SCREEN NEGATIVE (NEGATIVE)
[2023-10-13 19:16] LABS: HEPATITIS B CORE ANTIBODY IGM NEGATIVE (NEGATIVE)
[2023-10-13 19:17] LABS: HEPATITIS C VIRUS ABY INDEX < 0.02 INDEX (<0.8)
== END ==
LOC: M PLALAB 15:38
PROVIDERS: ATTEND Nurse Practitioner Family
DX: Z11.3 Encounter for screening for infections with a predominantly sexual mode of transmission (principal); N73.9 Female pelvic inflammatory disease, unspecified

== ENCOUNTER 2023-11-11 16:39 | Emergency (ER) | payer MEDICAID, OTHER ==
[~2023-11-11] VITALS: Ht 162.6 cm; Wt 93.1 kg
[2023-11-11] MEDS: TETRACAINE 0.5% OPHTH SOLN 4ML OU ONE (17:34)
[2023-11-11 18:02] LABS: BASO # 0.1 10^3/uL (0.0-0.2); BASO % 0.7 % (0.0-1.0); EOS # 0.2 10^3/uL (0.0-0.5); EOS % 2.6 % (0.0-3.0); HEMATOCRIT 34.3 % (36.0-47.0); HEMOGLOBIN 10.6 g/dl (12.0-15.5); LYMPH # 2.3 10^3/uL (1.5-5.0); LYMPH % 30.6 % (24.0-44.0); MEAN CORPUSCULAR HGB CONC 30.9 g/dl (32.0-36.5); MEAN CORPUSCULAR VOLUME 80.9 fl (80.0-96.0); MONO # 0.5 10^3/uL (0.0-0.8); MONO % 6.2 % (2.0-8.0); NEUTROPHILS # 4.5 10^3/uL (1.5-8.5); NEUTROPHILS % 59.6 % (36.0-66.0); PLATELET COUNT, AUTOMATED 220 10^3/uL (150-450); RED BLOOD COUNT 4.24 10^6/uL (4.00-5.40); WHITE BLOOD COUNT 7.6 10^3/uL (4.0-10.0)
[2023-11-11 18:05] LABS: C REACTIVE PROTEIN QUANTITATIV < 0.40 MG/DL (<1.0); HCG, SERUM QUALITATIVE NEGATIVE (NEGATIVE)
[2023-11-11 18:06] LABS: ALBUMIN 3.7 G/DL (3.2-5.2); ALKALINE PHOSPHATASE 59 U/L (46-116); ALT/SGPT 15 U/L (7.0-40); AST/SGOT 9 U/L (<34); BILIRUBIN,DIRECT < 0.1 MG/DL (<0.4); BILIRUBIN,TOTAL 0.2 MG/DL (0.3-1.2); TOTAL PROTEIN 6.9 G/DL (5.7-8.2)
[2023-11-11 18:10] LABS: ERYTHROCYTE SEDIMENTATION RATE 8 mm/hr (0-20)
[2023-11-11] MEDS: METOCLOPRAMIDE INJ 10MG/2ML VIAL IV ONE (18:46)
[2023-11-11] MEDS: NS 1,000 ML IV ONE (18:46)
[2023-11-11] MEDS: diphenhydrAMINE 50MG/ML VIAL IV STA (18:46)
[2023-11-11] MEDS: dexAMETHasone 20MG/5ML VIAL IV ONE (18:46)
[2023-11-11 19:36] VITALS: BP 125/74; TEMP 98; O2SAT 98
== END 2023-11-11 19:43 | disposition home or self-care (01) ==
LOC: M ED 16:39
DX: G43.909 Migraine, unspecified, not intractable, without status migrainosus (principal); K21.9 Gastro-esophageal reflux disease without esophagitis; G40.909 Epilepsy, unspecified, not intractable, without status epilepticus; K90.0 Celiac disease; Z88.0 Allergy status to penicillin; Z88.1 Allergy status to other antibiotic agents; Z88.2 Allergy status to sulfonamides; Z88.8 Allergy status to other drugs, medicaments and biological substances; Z91.040 Latex allergy status; Z79.899 Other long term (current) drug therapy
CPT/HCPCS: 36415; 70450; 80047; 80076; 83735; 84703; 85025; 85652; 86140; 87070; 87077; 87186; 96361; 96374; 99203; 99284; J1100; J1200; J2765

== ENCOUNTER → 2023-11-11 | Outpatient (REF) | payer OTHER, MEDICAID | LOC: M SFHCDERM 17:08 | PROVIDERS: ATTEND Physician Assistant | DX: Z78.9 Other specified health status (principal) ==

== ENCOUNTER → 2023-11-22 | Outpatient (CLI) | payer OTHER ==
[2023-11-22 18:03] LABS: BASO % 0.5 % (0.0-1.0); EOS # 0.2 10^3/uL (0.0-0.5); EOS % 2.7 % (0.0-3.0); HEMATOCRIT 34.5 % (36.0-47.0); HEMOGLOBIN 10.5 g/dl (12.0-15.5); LYMPH # 2.4 10^3/uL (1.5-5.0); LYMPH % 41.7 % (24.0-44.0); MEAN CORPUSCULAR HEMOGLOBIN 25.2 pg (27.0-33.0); MEAN CORPUSCULAR HGB CONC 30.4 g/dl (32.0-36.5); MEAN CORPUSCULAR VOLUME 82.7 fl (80.0-96.0); MONO # 0.4 10^3/uL (0.0-0.8); MONO % 7.6 % (2.0-8.0); NEUTROPHILS # 2.7 10^3/uL (1.5-8.5); NEUTROPHILS % 47.3 % (36.0-66.0); PLATELET COUNT, AUTOMATED 300 10^3/uL (150-450); RED BLOOD COUNT 4.17 10^6/uL (4.00-5.40); WHITE BLOOD COUNT 5.6 10^3/uL (4.0-10.0)
[2023-11-22 19:42] LABS: THYROID STIMULATING HORMONE 1.166 uIU/ML (0.55-4.78)
[2023-11-22 19:47] LABS: FREE T4 1.1 NG/DL (0.89-1.76); PERCENT SATURATION 10.9 % (13.2-45.0)
== END ==
LOC: M PLALAB 14:45
PROVIDERS: ATTEND Physician Assistant
DX: D64.9 Anemia, unspecified (principal)

== ENCOUNTER 2023-11-30 11:53 | Outpatient (CLI) | payer OTHER ==
[~2023-11-30] VITALS: Ht 162.6 cm; Wt 93.0 kg
[~2023-11-30 11:53] MED LIST changes: +ALBUTEROL SULFATE 2.5MG/0.5ML INH NEB SOLN INH PRN; +EPINEPHrine INJ 1 MG/ML 1ML AMP IM PRN; +NS 1,000 ML IV SCH; +diphenhydrAMINE 50MG/ML VIAL IV PRN; +methylPREDNISolone 125MG 2ML VIAL IV PRN
[2023-11-30 13:00] VITALS: BP 116/59; O2SAT 100
[2023-11-30] MEDS: IRON SUCROSE 300 MG in NS 250 ML IV ONE (13:36)
[2023-11-30 15:35] VITALS: BP 124/84; O2SAT 100
== END 2023-11-30 15:40 ==
LOC: M INFU 11:53
PROVIDERS: ATTEND Physician Assistant
DX: D50.9 Iron deficiency anemia, unspecified (principal); Z88.0 Allergy status to penicillin; Z88.1 Allergy status to other antibiotic agents; Z88.2 Allergy status to sulfonamides; Z88.8 Allergy status to other drugs, medicaments and biological substances
CPT/HCPCS: 96365; 96366; J1756

== ENCOUNTER 2023-12-07 14:35 | Outpatient (CLI) | payer OTHER ==
[~2023-12-07] VITALS: Ht 162.6 cm; Wt 92.0 kg
[2023-12-07 14:55] VITALS: BP 126/90; O2SAT 100
[2023-12-07] MEDS: IRON SUCROSE 300 MG in NS 250 ML IV ONE (14:58)
[2023-12-07 16:40] VITALS: BP 110/63; O2SAT 100
== END 2023-12-07 16:40 ==
LOC: M INFU 14:35
PROVIDERS: ATTEND Physician Assistant
DX: D50.9 Iron deficiency anemia, unspecified (principal); Z88.0 Allergy status to penicillin; Z88.1 Allergy status to other antibiotic agents; Z88.2 Allergy status to sulfonamides; Z88.8 Allergy status to other drugs, medicaments and biological substances
CPT/HCPCS: 96365; 96366; J1756

== ENCOUNTER 2023-12-14 13:30 | Outpatient (CLI) | payer OTHER ==
[~2023-12-14] VITALS: Ht 162.6 cm; Wt 92.7 kg
[2023-12-14 13:30] VITALS: BP 121/61; O2SAT 100
[2023-12-14] MEDS: IRON SUCROSE 300 MG in NS 250 ML OVER 90 MIN. IV ONE (14:41)
[2023-12-14 16:30] VITALS: BP 139/80; O2SAT 100
== END 2023-12-14 16:30 ==
LOC: M INFU 13:30
PROVIDERS: ATTEND Physician Assistant
DX: D50.9 Iron deficiency anemia, unspecified (principal); Z88.0 Allergy status to penicillin; Z88.2 Allergy status to sulfonamides; Z88.1 Allergy status to other antibiotic agents; Z88.8 Allergy status to other drugs, medicaments and biological substances
CPT/HCPCS: 96365; 96366; J1756

== ENCOUNTER → 2024-01-16 | Outpatient (CLI) | payer OTHER ==
[~2024-01-16] MED LIST changes: -ALBUTEROL SULFATE 2.5MG/0.5ML INH NEB SOLN INH PRN; -EPINEPHrine INJ 1 MG/ML 1ML AMP IM PRN; -NS 1,000 ML IV SCH; -diphenhydrAMINE 50MG/ML VIAL IV PRN; -methylPREDNISolone 125MG 2ML VIAL IV PRN
[2024-01-16 14:29] LABS: HEMATOCRIT 41.8 % (36.0-47.0); HEMOGLOBIN 13.5 g/dl (12.0-15.5); MEAN CORPUSCULAR HEMOGLOBIN 28.1 pg (27.0-33.0); MEAN CORPUSCULAR HGB CONC 32.3 g/dl (32.0-36.5); MEAN CORPUSCULAR VOLUME 87.1 fl (80.0-96.0); PLATELET COUNT, AUTOMATED 256 10^3/uL (150-450); WHITE BLOOD COUNT 5.4 10^3/uL (4.0-10.0)
== END ==
LOC: M LAB 13:44
PROVIDERS: ATTEND Family Medicine
DX: D50.9 Iron deficiency anemia, unspecified (principal)

== ENCOUNTER 2024-03-09 17:15 | Emergency (ER) | payer MEDICAID, OTHER ==
[~2024-03-09] VITALS: Ht 162.6 cm; Wt 92.3 kg
[2024-03-09] MEDS ORDERED: AMOX875T2 PO (21:29)
[2024-03-09] MEDS: AUGMENTIN 875 MG TAB PO ONE (21:38)
[2024-03-09 21:51] VITALS: BP 122/70; TEMP 97.9; O2SAT 99
== END 2024-03-09 22:02 | disposition home or self-care (01) ==
LOC: M ED 17:15
DX: K08.89 Other specified disorders of teeth and supporting structures (principal); Z88.0 Allergy status to penicillin; Z88.2 Allergy status to sulfonamides; Z88.6 Allergy status to analgesic agent; Z88.1 Allergy status to other antibiotic agents; Z91.040 Latex allergy status; K90.0 Celiac disease; K21.9 Gastro-esophageal reflux disease without esophagitis

== ENCOUNTER → 2024-04-28 | Outpatient (CLI) | payer OTHER ==
[~2024-04-28] MED LIST changes: +AMOX875T2 PO
[2024-04-28 12:58] LABS: HEMOGLOBIN 13.4 g/dl (12.0-15.5); MEAN CORPUSCULAR HEMOGLOBIN 30.5 pg (27.0-33.0); MEAN CORPUSCULAR HGB CONC 33.5 g/dl (32.0-36.5); MEAN CORPUSCULAR VOLUME 91.1 fl (80.0-96.0); PLATELET COUNT, AUTOMATED 266 10^3/uL (150-450); RED BLOOD COUNT 4.39 10^6/uL (4.00-5.40); WHITE BLOOD COUNT 5.3 10^3/uL (4.0-10.0)
[2024-04-28 13:09] LABS: HEMOGLOBIN A1c 4.6 % (4.0-6.0)
[2024-04-28 13:23] LABS: ALBUMIN 3.6 G/DL (3.2-5.2); ALKALINE PHOSPHATASE 51 U/L (35-104); ALT/SGPT 17 U/L (7.0-40); AST/SGOT 13 U/L (<34); BILIRUBIN,TOTAL 0.7 MG/DL (0.3-1.2); BLOOD UREA NITROGEN 6 MG/DL (9-23); CALCIUM LEVEL 8.9 MG/DL (8.5-10.1); CARBON DIOXIDE LEVEL 27 MMOL/L (20-31); CHLORIDE LEVEL 110 MMOL/L (98-107); CHOLESTEROL LEVEL 199 MG/DL (<200); CHOLESTEROL RISK RATIO 3.18 (<5); CREATININE FOR GFR 0.66 MG/DL (0.55-1.30); GLOMERULAR FILTRATION RATE > 60.0 (>60); GLUCOSE, FASTING 88 MG/DL (60-100); HDL CHOLESTEROL 62.4 MG/DL (>40); NON-HDL-C 136.6 MG/DL; POTASSIUM SERUM 4.1 MMOL/L (3.5-5.1); SODIUM LEVEL 142 MMOL/L (136-145); TRIGLYCERIDES LEVEL 88 MG/DL (<150)
[2024-04-28 13:25] LABS: FERRITIN 42.1 NG/ML (7.3-270.7)
== END ==
LOC: M LAB 12:21
PROVIDERS: ATTEND Family Medicine
DX: E78.00 Pure hypercholesterolemia, unspecified (principal)

== ENCOUNTER 2024-05-30 14:27 | Emergency (ER) | payer OTHER ==
[~2024-05-30] VITALS: Ht 162.6 cm; Wt 93.8 kg
[2024-05-30 16:24] LABS: BASO % 0.6 % (0.0-1.0); EOS # 0.2 10^3/uL (0.0-0.5); EOS % 2.8 % (0.0-3.0); HEMOGLOBIN 13.5 g/dl (12.0-15.5); LYMPH # 1.8 10^3/uL (1.5-5.0); LYMPH % 26.5 % (24.0-44.0); MEAN CORPUSCULAR HEMOGLOBIN 30.1 pg (27.0-33.0); MEAN CORPUSCULAR HGB CONC 33.8 g/dl (32.0-36.5); MEAN CORPUSCULAR VOLUME 89.1 fl (80.0-96.0); MONO # 0.3 10^3/uL (0.0-0.8); MONO % 5.1 % (2.0-8.0); NEUTROPHILS # 4.3 10^3/uL (1.5-8.5); NEUTROPHILS % 64.9 % (36.0-66.0); PLATELET COUNT, AUTOMATED 211 10^3/uL (150-450); RED BLOOD COUNT 4.49 10^6/uL (4.00-5.40); WHITE BLOOD COUNT 6.7 10^3/uL (4.0-10.0)
[2024-05-30 16:33] LABS: ERYTHROCYTE SEDIMENTATION RATE 7 mm/hr (0-20)
[2024-05-30] MEDS ORDERED: ISOVUE-370 76% 100ML VIAL As Ordered ONE (16:42)
[2024-05-30 17:39] VITALS: BP 116/57; TEMP 99.5; O2SAT 98
== END 2024-05-30 17:41 | disposition home or self-care (01) ==
LOC: M ED 14:27
DX: K08.89 Other specified disorders of teeth and supporting structures (principal); Z88.0 Allergy status to penicillin; Z88.1 Allergy status to other antibiotic agents; Z88.2 Allergy status to sulfonamides; Z88.6 Allergy status to analgesic agent; Z88.8 Allergy status to other drugs, medicaments and biological substances; Z79.899 Other long term (current) drug therapy
CPT/HCPCS: 36415; 70487; 80047; 85025; 85652; 86140; 99284; Q9967

== ENCOUNTER → 2024-06-13 | Outpatient (REF) | payer OTHER ==
[2024-06-16 16:03] LABS: HPV APTIMA Not Detected (Not Detected)
== END ==
LOC: M SFHCWAGY 16:50
PROVIDERS: ATTEND Specialist
DX: N39.0 Urinary tract infection, site not specified (principal)

== ENCOUNTER → 2024-06-26 | Outpatient (REF) | payer OTHER | LOC: M LAB REF 16:51 | PROVIDERS: ATTEND Physician Assistant | DX: N76.0 Acute vaginitis (principal) ==

== ENCOUNTER → 2024-10-15 | Outpatient (REF) | payer OTHER ==
[~2024-10-15] MED LIST changes: -ACE65ERTAB PO; +ACET-1593 PO; +TOPI-256; +TOPI-256 PO; -TOPI25TA10; -TOPI25TA10 PO
[2024-10-16 11:34] LABS: APPEARANCE, URINE CLEAR (CLEAR); BACTERIA, URINE AUTO NEGATIVE (NEGATIVE); BILIRUBIN, URINE AUTO NEGATIVE (NEGATIVE); BLOOD, URINE BLOOD NEGATIVE (NEGATIVE); GLUCOSE, URINE (UA) AUTO NEGATIVE (NEGATIVE); KETONE, URINE AUTO NEGATIVE (NEGATIVE); LEUKOCYTE ESTERASE, URINE AUTO NEGATIVE (NEGATIVE); NITRITE, URINE AUTO NEGATIVE (NEGATIVE); PROTEIN, URINE AUTO NEGATIVE (NEGATIVE); RBC, URINE AUTO 1 /HPF (0-3); SPECIFIC GRAVITY URINE AUTO 1.006 (1.002-1.035); SQUAMOUS EPITHELIAL CELL UR AU 2 /HPF (0-6); UROBILINOGEN, URINE AUTO 0.2 mg/dL (0.0-2.0); WBC, URINE AUTO 1 /HPF (0-3)
== END ==
LOC: M SFHCPLAZ 10:32
PROVIDERS: ATTEND Physician Assistant Medical
DX: R30.0 Dysuria (principal)

== ENCOUNTER → 2024-11-02 | Outpatient (REF) | payer OTHER ==
[2024-11-02 16:35] LABS: APPEARANCE, URINE HAZY (CLEAR); BACTERIA, URINE AUTO NEGATIVE (NEGATIVE); BILIRUBIN, URINE AUTO NEGATIVE (NEGATIVE); BLOOD, URINE BLOOD NEGATIVE (NEGATIVE); GLUCOSE, URINE (UA) AUTO NEGATIVE (NEGATIVE); KETONE, URINE AUTO TRACE mg/dL (NEGATIVE); LEUKOCYTE ESTERASE, URINE AUTO NEGATIVE (NEGATIVE); MUCUS, URINE LARGE (NEGATIVE); NITRITE, URINE AUTO NEGATIVE (NEGATIVE); PROTEIN, URINE AUTO 1+ mg/dL (NEGATIVE); RBC, URINE AUTO 0 /HPF (0-3); SPECIFIC GRAVITY URINE AUTO 1.032 (1.002-1.035); SQUAMOUS EPITHELIAL CELL UR AU 5 /HPF (0-6); UROBILINOGEN, URINE AUTO 0.2 mg/dL (0.0-2.0); WBC, URINE AUTO 0 /HPF (0-3)
[2024-11-03 11:43] LABS: CANDIDA GLABRATA NAA NOT DETECTED (NOT DETECTED); TRICH VAG BY NAA NOT DETECTED (NOT DETECTED)
[2024-11-03 12:17] LABS: BVAB 2 NEGATIVE (NEGATIVE)
[2024-11-03 12:22] LABS: CHLAMYDIA TRACHOMATIS NAA NOT DETECTED (NOT DETECTED)
== END ==
LOC: M SFHCPLAZ 15:02
PROVIDERS: ATTEND Family Medicine
DX: R30.0 Dysuria (principal); N89.8 Other specified noninflammatory disorders of vagina

== ENCOUNTER → 2024-11-16 | Outpatient (REF) | payer OTHER | LOC: M SFHCPLAZ 10:10 | PROVIDERS: ATTEND Nurse Practitioner Family | DX: N39.0 Urinary tract infection, site not specified (principal) ==

== ENCOUNTER 2024-11-26 10:37 | Emergency (ER) | payer OTHER ==
[~2024-11-26] VITALS: Ht 162.6 cm; Wt 90.0 kg
[2024-11-26 11:52] LABS: KETONE, URINE MANUAL REFLEX OBSCURED mg/dL (NEGATIVE); PROTEIN, URINE MANUAL REFLEX 3+ mg/dL (NEGATIVE); SP GRAVITY,URINE MANUAL REFLEX 1.030 (1.002-1.035)
[2024-11-26 11:53] LABS: NITRITE, URINE MANUAL RFX OBSCURED (NEGATIVE); UROBILINOGEN, UA MANUAL REFLEX OBSCURED mg/dl (NORMAL)
[2024-11-26 11:59] LABS: RBC, URINE MAN REFLEX TNTC /hpf (0-3); SQUAMOUS EPITHELIAL URINE RFX LARGE AMOUNT /hpf (SMALL AMT); WBC, URINE MAN RFX 40-50 /hpf (0-3)
[2024-11-26 12:00] LABS: HYALINE CAST, URINE RFX NONE SEEN /lpf (0-1); MICROSCOPIC EXAM RFX PERFORMED; MUCUS, URINE REFLEX SMALL AMOUNT (NEGATIVE)
[2024-11-26 16:02] LABS: Trichomonas vaginalis (AMP) NOT DETECTED (NEGATIVE)
[2024-11-26] MEDS ORDERED: CIPR-249 PO (16:08)
[2024-11-26 16:14] VITALS: BP 116/69; TEMP 97.5; O2SAT 100
[2024-11-26 16:26] LABS: GC DNA AMPLIFICATION NEGATIVE (NEGATIVE)
== END 2024-11-26 16:14 | disposition home or self-care (01) ==
LOC: M ED 10:37
DX: R30.0 Dysuria (principal); G40.89 Other seizures; K21.9 Gastro-esophageal reflux disease without esophagitis; K90.0 Celiac disease; F41.9 Anxiety disorder, unspecified; F25.9 Schizoaffective disorder, unspecified; F60.3 Borderline personality disorder; F31.9 Bipolar disorder, unspecified; Z88.0 Allergy status to penicillin; Z88.1 Allergy status to other antibiotic agents; Z88.2 Allergy status to sulfonamides; Z88.6 Allergy status to analgesic agent; Z79.2 Long term (current) use of antibiotics; Z79.899 Other long term (current) drug therapy

== ENCOUNTER → 2024-11-27 | Outpatient (REF) | payer OTHER ==
[~2024-11-27] MED LIST changes: +CIPR-249 PO
== END ==
LOC: M SFHCLERA 17:20
DX: N89.9 Noninflammatory disorder of vagina, unspecified (principal)

== ENCOUNTER → 2024-12-12 | Outpatient (REF) | payer OTHER ==
[2024-12-12 19:00] LABS: APPEARANCE, URINE CLEAR (CLEAR); BACTERIA, URINE AUTO NEGATIVE (NEGATIVE); BILIRUBIN, URINE AUTO NEGATIVE (NEGATIVE); BLOOD, URINE BLOOD NEGATIVE (NEGATIVE); GLUCOSE, URINE (UA) AUTO NEGATIVE (NEGATIVE); KETONE, URINE AUTO NEGATIVE (NEGATIVE); LEUKOCYTE ESTERASE, URINE AUTO NEGATIVE (NEGATIVE); NITRITE, URINE AUTO NEGATIVE (NEGATIVE); PROTEIN, URINE AUTO NEGATIVE (NEGATIVE); RBC, URINE AUTO 0 /HPF (0-3); SPECIFIC GRAVITY URINE AUTO 1.005 (1.002-1.035); SQUAMOUS EPITHELIAL CELL UR AU 2 /HPF (0-6); UROBILINOGEN, URINE AUTO 0.2 mg/dL (0.0-2.0); WBC, URINE AUTO 0 /HPF (0-3)
== END ==
LOC: M SFHCWAGY 17:30
PROVIDERS: ATTEND Specialist
DX: R30.0 Dysuria (principal)

== ENCOUNTER → 2024-12-28 | Outpatient (CLI) | payer OTHER ==
[2024-12-28 12:06] LABS: ALT/SGPT 18 U/L (7.0-40); AST/SGOT 15 U/L (<34); CALCIUM LEVEL 9.0 MG/DL (8.5-10.1); CARBON DIOXIDE LEVEL 28 MMOL/L (20-31); CHLORIDE LEVEL 107 MMOL/L (98-107); CHOLESTEROL LEVEL 164 MG/DL (<200); CHOLESTEROL RISK RATIO 2.89 (<5); CREATININE FOR GFR 0.79 MG/DL (0.55-1.30); GLOMERULAR FILTRATION RATE > 90.0 (>60); LDL CHOLESTEROL 96.5 MG/DL (<100); NON-HDL-C 107.3 MG/DL; POTASSIUM SERUM 3.8 MMOL/L (3.5-5.1); SODIUM LEVEL 144 MMOL/L (136-145); TRIGLYCERIDES LEVEL 54 MG/DL (<150)
[2024-12-28 12:21] LABS: ESTIMATED AVERAGE GLUCOSE 91.0 MG/DL (60-110)
== END ==
LOC: M LAB 11:05
DX: F25.0 Schizoaffective disorder, bipolar type (principal)

== ENCOUNTER → 2025-01-11 | Outpatient (REF) | payer OTHER ==
[2025-01-11 17:39] LABS: AMORPHOUS SEDIMENT SMALL (NEGATIVE); APPEARANCE, URINE CLOUDY (CLEAR); BACTERIA, URINE AUTO NEGATIVE (NEGATIVE); BILIRUBIN, URINE AUTO NEGATIVE (NEGATIVE); BLOOD, URINE BLOOD 3+ (NEGATIVE); GLUCOSE, URINE (UA) AUTO NEGATIVE (NEGATIVE); KETONE, URINE AUTO NEGATIVE (NEGATIVE); LEUKOCYTE ESTERASE, URINE AUTO NEGATIVE (NEGATIVE); MUCUS, URINE SMALL (NEGATIVE); NITRITE, URINE AUTO NEGATIVE (NEGATIVE); PROTEIN, URINE AUTO 1+ mg/dL (NEGATIVE); RBC, URINE AUTO TNTC /HPF (0-3); SPECIFIC GRAVITY URINE AUTO 1.020 (1.002-1.035); SQUAMOUS EPITHELIAL CELL UR AU 1 /HPF (0-6); UROBILINOGEN, URINE AUTO 0.2 mg/dL (0.0-2.0); WBC, URINE AUTO 0 /HPF (0-3)
== END ==
LOC: M SMT 16:45
PROVIDERS: ATTEND Nurse Practitioner Family
DX: N30.90 Cystitis, unspecified without hematuria (principal)